=== PATIENT | male | born 1980 | race Caucasian/White ===

== ENCOUNTER 2024-09-15 04:14 | Outpatient (CLI) | payer OTHER, SELFPAY ==
--- OUTSIDE RECORDS SUMMARY | 2024-09-15 05:13 | XMS_ITS | Encounter Summary ---
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 shoes/slippers when out of bed room near nurse's station Intervention: Prevent Skin Injury Recent Flowsheet Documentation Taken 09/16/20242352 by Zaida Read RN Body Position: position changed independently Intervention: Prevent and Manage VTE (Venous Thromboembolism) Risk Recent Flowsheet Documentation Taken 09/16/20242352 by Zaida Read RN VTE Prevention/Management: SCDs on (sequential compression devices) Intervention: Prevent Infection Recent Flowsheet Documentation Taken 09/16/20242352 by Zaida Read RN Infection Prevention: hand hygiene promoted rest/sleep promoted single patient room provided Goal: Optimal Comfort and Wellbeing Outcome: Progressing Goal: Readiness for Transition of Care Outcome: Progressing Problem: Stroke, Ischemic (Includes Transient Ischemic Attack) Goal: Optimal Coping Outcome: Progressing Goal: Effective Bowel Elimination Outcome: Progressing Goal: Optimal Cerebral Tissue Perfusion Outcome: Progressing Intervention: Protect and Optimize Cerebral Perfusion Recent Flowsheet Documentation Taken 09/16/20242352 by Zaida Read RN Sensory Stimulation Regulation: care clustered lighting decreased quiet environment promoted Goal: Optimal Cognitive Function Outcome: Progressing Intervention: Optimize Cognitive Function Recent Flowsheet Documentation Taken 09/16/20242352 by Zaida Read RN Sensory Stimulation Regulation: care clustered lighting decreased quiet environment promoted Reorientation Measures: clock in view Goal: Improved Communication Skills Outcome: Progressing Intervention: Optimize Communication Skills Recent Flowsheet Documentation Taken 09/16/20242352 by Zaida Read RN Communication Enhancement Strategies: call light answered in person Goal: Optimal Functional Ability Outcome: Progressing Intervention: Optimize Functional Ability Recent Flowsheet Documentation Taken 09/16/20242352 by Zaida Read RN Activity Management: activity adjusted per tolerance Goal: Optimal Nutrition Intake Outcome: Progressing Goal: Effective Oxygenation and Ventilation Outcome: Progressing Intervention: Optimize Oxygenation and Ventilation Recent Flowsheet Documentation Taken 09/16/20242352 by Zaida Read RN Head of Bed (HOB) Positioning: HOB at 20-30 degrees Goal: Improved Sensorimotor Function Outcome: Progressing Goal: Safe and Effective Swallow Outcome: Progressing Goal: Effective Urinary Elimination Outcome: Progressing Problem: Comorbidity Management Goal: Blood Glucose Levels Within Targeted Range Outcome: Progressing Intervention: Monitor and Manage Glycemia Recent Flowsheet Documentation Taken 09/16/20242352 by Zaida Read RN Medication Review/Management: medications reviewed Goal: Blood Pressure in Desired Range Outcome: Progressing Intervention: Maintain Blood Pressure Management Recent Flowsheet Documentation Taken 09/16/20242352 by Zaida Read RN Medication Review/Management: medications reviewed * Plan of Care - Esther Morgan RN - 09/16/2024 10:36 PM CDT Goal Outcome Evaluation: BP (!) 131/90 (BP Location: Left arm, Patient Position: Semi-Rangel's, Cuff Size: Adult Regular) Pulse 86 Temp 97.8 ??F (36.6 ??C) (Oral) Resp 16 Wt 114.7 kg (252 lb 12.8 oz) SpO2 96% BMI34.77 kg/m?? Problem: Adult Inpatient Plan of Care Goal: Plan of Care Review Description: The Plan of Care Review/Shift note should be completed every shift. The Outcome Evaluation is a brief statement about your assessment that the patient is improving, declining, or no change. This information will be displayed automatically on your shift note. Outcome: Not Progressing Flowsheets (Taken 09/16/20242234) Outcome Evaluation: Pt A&O, SBA for mobility, on BG check covered with insuline, denied pain, on continuing IV fluids, on tele monitor SR, ate 100% of his meal, voided adequately. Goal: Patient-Specific Goal (Individualized) Description: You can add care plan individualizations to a care plan. Examples of Individualizationmight be: Parent requests to be called daily at 9am for status, I have a hard time hearing out of my right ear, or Do not touch me to wake me up as it startles me. Outcome: Not Progressing Goal: Absence of Hospital-Acquired Illness or Injury Outcome: Not Progressing Intervention: Identify and Manage Fall Risk Recent Flowsheet Documentation Taken 09/16/20242199 by Esther Morgan RN Safety Promotion/Fall Prevention: safety round/check completed Intervention: Prevent Skin Injury Recent Flowsheet Documentation Taken 09/16/20242199 by Esther Morgan RN Body Position: position changed independently Intervention: Prevent and Manage VTE (Venous Thromboembolism) Risk Recent Flowsheet Documentation Taken 09/16/20242199 by Esther Morgan RN VTE Prevention/Management: SCDs on (sequential compression devices) Intervention: Prevent Infection Recent Flowsheet Documentation Taken 09/16/20242199 by Esther Morgan RN Infection Prevention: rest/sleep promoted hand hygiene promoted single patient room provided Goal: Optimal Comfort and Wellbeing Outcome: Not Progressing Goal: Readiness for Transition of Care Outcome: Not Progressing Problem: Stroke, Ischemic (Includes Transient Ischemic Attack) Goal: Optimal Coping Outcome: Not Progressing Goal: Effective Bowel Elimination Outcome: Not Progressing Goal: Optimal Cerebral Tissue Perfusion Outcome: Not Progressing Intervention: Protect and Optimize Cerebral Perfusion Recent Flowsheet Documentation Taken 09/16/20242199 by Esther Morgan RN Sensory Stimulation Regulation: care clustered lighting decreased Goal: Optimal Cognitive Function Outcome: Not Progressing Intervention: Optimize Cognitive Function Recent Flowsheet Documentation Taken 09/16/20242199 by Esther Morgan RN Sensory Stimulation Regulation: care clustered lighting decreased Reorientation Measures: clock in view Goal: Improved Communication Skills Outcome: Not Progressing Intervention: Optimize Communication Skills Recent Flowsheet Documentation Taken 09/16/20242199 by Esther Morgan RN Communication Enhancement Strategies: call light answered in person Goal: Optimal Functional Ability Outcome: Not Progressing Intervention: Optimize Functional Ability Recent Flowsheet Documentation Taken 09/16/20242199 by Etsher Morgan RN Activity Management: ambulated to bathroom back to bed Goal: Optimal Nutrition Intake Outcome: Not Progressing Goal: Effective Oxygenation and Ventilation Outcome: Not Progressing Intervention: Optimize Oxygenation and Ventilation Recent Flowsheet Documentation Taken 09/16/20242199 by Esther Morgan RN Head of Bed (HOB) Positioning: HOB at 20-30 degrees Goal: Improved Sensorimotor Function Outcome: Not Progressing Intervention: Optimize Range of Motion, Motor Control and Function Recent Flowsheet Documentation Taken 09/16/20242199 by Esther Morgan RN Positioning/Transfer Devices: pillows in use Goal: Safe and Effective Swallow Outcome: Not Progressing Goal: Effective Urinary Elimination Outcome: Not Progressing Problem: Comorbidity Management Goal: Blood Glucose Levels Within Targeted Range Outcome: Not Progressing Intervention: Monitor and Manage Glycemia Recent Flowsheet Documentation Taken 09/16/20242199 by Esther Morgan RN Medication Review/Management: medications reviewed Goal: Blood Pressure in Desired Range Outcome: Not Progressing Intervention: Maintain Blood Pressure Management Recent Flowsheet Documentation Taken 09/16/20242199 by Esther Morgan RN Medication Review/Management: medications reviewed Outcome Evaluation: Pt A&O, SBA for mobility, on BG check covered with insuline, denied pain, on continuing IV fluids, on tele monitor SR, ate 100% of his meal, voided adequately. * Plan of Care - Miah Gordon RN - 09/16/2024 7:05 PM CDT A&Ox4. Int forgetfulness. Mod/carb diet. RA. SB. IV fluids running @125ml/hr. BG ac/hs. Carb count. Tele-SR. Neuros stable X R pupil reaction brisk. Neuro following. Plan to discharge when medically ready. Goal Outcome Evaluation: Plan of Care Reviewed With: patient Overall Patient Progress: improvingOverall Patient Progress: improving Outcome Evaluation: Neauros stable/ R pupil reaction brisk. Problem: Adult Inpatient Plan of Care Goal: Plan of Care Review Description: The Plan of Care Review/Shift note should be completed every shift. The Outcome Evaluation is a brief statement about your assessment that the patient is improving, declining, or no change. This information will be displayed automatically on your shift note. Outcome: Progressing Flowsheets (Taken 09/16/2024 1904) Outcome Evaluation: Neauros stable/ R pupil reaction brisk. Plan of Care Reviewed With: patient Overall Patient Progress: improving Goal: Patient-Specific Goal (Individualized) Description: You can add care plan individualizations to a care plan. Examples of Individualizationmight be: Parent requests to be called daily at 9am for status, I have a hard time hearing out of my right ear, or Do not touch me to wake me up as it startles me. Outcome: Progressing Goal: Absence of Hospital-Acquired Illness or Injury Outcome: Progressing Intervention: Identify and Manage Fall Risk Recent Flowsheet Documentation Taken 09/16/2024 1147 by Miah Gordon RN Safety Promotion/Fall Prevention: safety round/check completed Intervention: Prevent Skin Injury Recent Flowsheet Documentation Taken 09/16/2024 1147 by Miah Gordon RN Body Position: position changed independently Taken 09/16/2024 0830 by Miah Gordon RN Body Position: position changed independently Intervention: Prevent and Manage VTE (Venous Thromboembolism) Risk Recent Flowsheet Documentation Taken 09/16/2024 1147 by Miah Gordno RN VTE Prevention/Management: SCDs on (sequential compression devices) Intervention: Prevent Infection Recent Flowsheet Documentation Taken 09/16/2024 1147 by Miah Gordon RN Infection Prevention: rest/sleep promoted hand hygiene promoted single patient room provided Goal: Optimal Comfort and Wellbeing Outcome: Progressing Goal: Readiness for Transition of Care Outcome: Progressing * Plan of Care - Zaida Castillo, PT - 09/16/2024 8:54 AM CDT Physical Therapy: Orders received. Chart reviewed and discussed with care team.? Physical Therapy not indicated due to pt mobilizing independently, no IP PT needs.? Defer discharge recommendations toOT and medical team.? Will complete orders. * Plan of Care - Zaida Read RN - 09/16/2024 4:39 AM CDT VS stable. Neuro's stable with only deficit of some forgetfulness. No complaints of pain. Blood sugar of 274. Tele is sinus rhythm. Goal Outcome Evaluation: Plan of Care Reviewed With: patient Overall Patient Progress: no changeOverall Patient Progress: no change Outcome Evaluation: Neuro's stable. Problem: Adult Inpatient Plan of Care Goal: Plan of Care Review Description: The Plan of Care Review/Shift note should be completed every shift. The Outcome Evaluation is a brief statement about your assessment that the patient is improving, declining, or no change. This information will be displayed automatically on your shift note. Outcome: Progressing Flowsheets (Taken 09/16/2024 0438) Outcome Evaluation: Neuro's stable. Plan of Care Reviewed With: patient Overall Patient Progress: no change Goal: Patient-Specific Goal (Individualized) Description: You can add care plan individualizations to a care plan. Examples of Individualizationmight be: Parent requests to be called daily at 9am for status, I have a hard time hearing out of my right ear, or Do not touch me to wake me up as it startles me. Outcome: Progressing Goal: Absence of Hospital-Acquired Illness or Injury Outcome: Progressing Intervention: Identify and Manage Fall Risk Recent Flowsheet Documentation Taken 09/16/2024 by Zaida Read RN Safety Promotion/Fall Prevention: clutter free environment maintained lighting adjusted nonskid shoes/slippers when out of bed Intervention: Prevent Skin Injury Recent Flowsheet Documentation Taken 09/16/2024 0000 by Zaida Read RN Body Position: position changed independently Intervention: Prevent and Manage VTE (Venous Thromboembolism) Risk Recent Flowsheet Documentation Taken 09/16/2024 0000 by Zaida Read RN VTE Prevention/Management: SCDs on (sequential compression devices) Intervention: Prevent Infection Recent Flowsheet Documentation Taken 09/16/2024 0000 by Zaida Read RN Infection Prevention: rest/sleep promoted hand hygiene promoted single patient room provided Goal: Optimal Comfort and Wellbeing Outcome: Progressing Goal: Readiness for Transition of Care Outcome: Progressing Problem: Stroke, Ischemic (Includes Transient Ischemic Attack) Goal: Optimal Coping Outcome: Progressing Goal: Effective Bowel Elimination Outcome: Progressing Goal: Optimal Cerebral Tissue Perfusion Outcome: Progressing Intervention: Protect and Optimize Cerebral Perfusion Recent Flowsheet Documentation Taken 09/16/2024 0000 by Zaida Read RN Sensory Stimulation Regulation: care clustered lighting decreased Goal: Optimal Cognitive Function Outcome: Progressing Intervention: Optimize Cognitive Function Recent Flowsheet Documentation Taken 09/16/2024 0000 by Zaida Read RN Sensory Stimulation Regulation: care clustered lighting decreased Reorientation Measures: clock in view Goal: Improved Communication Skills Outcome: Progressing Intervention: Optimize Communication Skills Recent Flowsheet Documentation Taken 09/16/2024 0000 by Zaida Read RN Communication Enhancement Strategies: call light answered in person Goal: Optimal Functional Ability Outcome: Progressing Intervention: Optimize Functional Ability Recent Flowsheet Documentation Taken 09/16/2024 0000 by Zaida Read RN Activity Management: activity adjusted per tolerance Goal: Optimal Nutrition Intake Outcome: Progressing Goal: Effective Oxygenation and Ventilation Outcome: Progressing Intervention: Optimize Oxygenation and Ventilation Recent Flowsheet Documentation Taken 09/16/2024 0000 by Zaida Read RN Head of Bed (HOB) Positioning: HOB at 30 degrees Goal: Improved Sensorimotor Function Outcome: Progressing Goal: Safe and Effective Swallow Outcome: Progressing Goal: Effective Urinary Elimination Outcome: Progressing Problem: Comorbidity Management Goal: Blood Glucose Levels Within Targeted Range Outcome: Progressing Intervention: Monitor and Manage Glycemia Recent Flowsheet Documentation Taken 09/16/2024 0000 by Zaida Read RN Medication Review/Management: medications reviewed Goal: Blood Pressure in Desired Range Outcome: Progressing Intervention: Maintain Blood Pressure Management Recent Flowsheet Documentation Taken 09/16/2024 by Zaida Read RN Medication Review/Management: medications reviewed * Plan of Care - Charlene Betancourt RN - 09/15/2024 9:36 PM CDT A&OX4. LS clear. Vitals see flowsheet. Afebrile. Permissive Hypertension per MD. Neuro intact except for forgetfulness : Patient ordered supper, but totally forgot he did order supper. No other deficits noted. NS infusing at 125 ml/hr. Tele NSR. BG 265 and 286 at HS. Up with SBA to bathroom. Denied pain at the time of assessment. Problem: Adult Inpatient Plan of Care Goal: Plan of Care Review Description: The Plan of Care Review/Shift note should be completed every shift. The Outcome Evaluation is a brief statement about your assessment that the patient is improving, declining, or no change. This information will be displayed automatically on your shift note. Outcome: Progressing Flowsheets (Taken 09/15/20242133) Outcome Evaluation: Neuro intact except for some forgetfulness. No deficts noted. Plan of Care Reviewed With: patient Overall Patient Progress: improving Goal: Patient-Specific Goal (Individualized) Description: You can add care plan individualizations to a care plan. Examples of Individualizationmight be: Parent requests to be called daily at 9am for status, I have a hard time hearing out of my right ear, or Do not touch me to wake me up as it startles me. Outcome: Progressing Goal: Absence of Hospital-Acquired Illness or Injury Outcome: Progressing Intervention: Identify and Manage Fall Risk Recent Flowsheet Documentation Taken 09/15/20241652 by Charlene Betancourt RN Safety Promotion/Fall Prevention: activity supervised Intervention: Prevent Skin Injury Recent Flowsheet Documentation Taken 09/15/20241652 by Charlene Betancourt RN Body Position: position changed independently Intervention: Prevent and Manage VTE (Venous Thromboembolism) Risk Recent Flowsheet Documentation Taken 09/15/20241652 by Charlene Betancourt RN VTE Prevention/Management: SCDs on (sequential compression devices) Intervention: Prevent Infection Recent Flowsheet Documentation Taken 09/15/20241652 by Charlene Betancourt RN Infection Prevention: single patient room provided hand hygiene promoted Goal: Optimal Comfort and Wellbeing Outcome: Progressing Goal: Readiness for Transition of Care Outcome: Progressing Problem: Stroke, Ischemic (Includes Transient Ischemic Attack) Goal: Optimal Coping Outcome: Progressing Goal: Effective Bowel Elimination Outcome: Progressing Goal: Optimal Cerebral Tissue Perfusion Outcome: Progressing Goal: Optimal Cognitive Function Outcome: Progressing Goal: Improved Communication Skills Outcome: Progressing Goal: Optimal Functional Ability Outcome: Progressing Intervention: Optimize Functional Ability Recent Flowsheet Documentation Taken 09/15/20241652 by Charlene Betancourt RN Activity Management: activity adjusted per tolerance Goal: Optimal Nutrition Intake Outcome: Progressing Goal: Effective Oxygenation and Ventilation Outcome: Progressing Intervention: Optimize Oxygenation and Ventilation Recent Flowsheet Documentation Taken 09/15/20241652 by Charlene Betancourt RN Head of Bed (HOB) Positioning: HOB at 30 degrees Goal: Improved Sensorimotor Function Outcome: Progressing Goal: Safe and Effective Swallow Outcome: Progressing Goal: Effective Urinary Elimination Outcome: Progressing Problem: Comorbidity Management Goal: Blood Glucose Levels Within Targeted Range Outcome: Progressing Intervention: Monitor and Manage Glycemia Recent Flowsheet Documentation Taken 09/15/20241652 by Charlene Betancourt RN Medication Review/Management: medications reviewed Goal: Blood Pressure in Desired Range Outcome: Progressing Intervention: Maintain Blood Pressure Management Recent Flowsheet Documentation Taken 09/15/20241652 by Charlene Betancourt RN Medication Review/Management: medications reviewed Goal Outcome Evaluation: Plan of Care Reviewed With: patient Overall Patient Progress: improvingOverall Patient Progress: improving Outcome Evaluation: Neuro intact except for some forgetfulness. No deficts noted. * Pharmacy-Admission Medication History - Parker Schmitz RPH - 09/15/2024 10:25 AM CDT Pharmacist Admission Medication History Admission medication history is complete. The information provided in this note is only as accurateas the sources available at the time of the update. Information Source(s): Patient via in-person Pertinent Information: Patient states he is not taking any prescription medications at the moment. No medications have been filled in surescripts for the past 12 months. Changes made to [employer] medication list: Added: None Deleted: 81mg Aspirin, Atorvastatin, bupropion, Invokana, Bydureon, losartan Changed: None Allergies reviewed with patient and updates made in EHR: yes Medication History Completed By: Parker Schmitz RPH 09/15/2024 10:25 AM No outpatient medications have been marked as taking for the 09/15/24 encounter (Hospital Encounter). documented in this encounter Plan of Treatment Scheduled Orders Name Type Priority Associated Diagnoses Orde r Schedule Echocardiogram PHYLLIS Echocardiography Routine Acute CVA (cerebrovascular accident) (H) Expected: 09/22/2024 (Approximate), Expires: 09/15/2025 Scheduled Referrals Name Type Priority Associated Diagnoses Orde r Schedule Hospital to Primary Care - Establish PCP Referral Referral Priority: 1-2 Weeks Acute CVA (cerebrovascular accident) (H) Type 2 diabetes mellitus without complication, without long-term current use of insulin (H) Benign essential hypertension Stage 3a chronic kidney disease (H) ANG (obstructive sleep apnea) Morbid obesity due to excess calories (H) Expected: 09/17/2024 (Approximate), Expires: 10/17/2024 Occupational Therapy [employer] Referral Referral Routine Acute CVA (cerebrovascular accident) (H) Type 2 diabetes mellitus without complication, without long-term current use of insulin (H) Benign essential hypertension Expected: 09/17/2024 (Approximate), Expires: 09/17/2025 Sleep Study Referral Referral Routine: Ne xt available opening Type 2 diabetes mellitus without complication, without long-term current use of insulin (H) Benign essential hypertension ANG (obstructive sleep apnea) Expected: 09/17/2024 (Approximate), Expires: 09/17/2025 documented as of this encounter Procedures Procedure Name Priority Date/Time Associated Diagnosis Comments GLUCOSE BY METER Routine 09/17/2024 12:0 1 PM CDT GLUCOSE BY METER Routine 09/17/2024 8:09 AM CDT BASIC METABOLIC PANEL Routine 09/17/2024 7:38 AM CDT CBC WITH PLATELETS Routine 09/17/2024 7: 38 AM CDT GLUCOSE BY METER Routine 09/17/2024 2:10 AM CDT GLUCOSE BY METER Routine 09/16/2024 9:17 PM CDT GLUCOSE BY METER Routine 09/16/2024 5:18 PM CDT GLUCOSE BY METER Routine 09/16/2024 11:4 3 AM CDT GLUCOSE BY METER Routine 09/16/2024 7:39 AM CDT BASIC METABOLIC PANEL Routine 09/16/2024 6:46 AM CDT CBC WITH PLATELETS Routine 09/16/2024 6: 46 AM CDT GLUCOSE BY METER Routine 09/16/2024 2:[address] CHEST/ABDOMEN/PELVIS W CONTRAST Routine 09/15/2024 10:05 PM CDT GLUCOSE BY METER Routine 09/15/2024 9:13 PM CDT PROTEIN S ANTIGEN FREE Routine 5:08 PM CDT PROTEIN C CHROMOGENIC Routine 09/15/2024 5:08 PM CDT LUPUS ANTICOAGULANT PANEL Routine 09/15/2024 5:08 PM CDT ANTITHROMBIN III Routine 09/15/2024 5:08 PM CDT GLUCOSE BY METER Routine 09/15/2024 4:46 PM CDT CTA HEAD NECK W CONTRAST STAT 09/15/2024 2:15 PM CDT US LOWER EXTREMITY VENOUS DUPLEX BILATERAL Routine 09/15/2024 2:04 PM CDT ECHO COMPLETE BUBBLE STAT 09/15/2024 1:26 PM CDT GLUCOSE BY METER STAT 09/15/2024 12:1 7 PM CDT GLUCOSE BY METER STAT 09/15/2024 10:2 4 AM CDT MR BRAIN W/O & W CONTRAST STAT 09/15/2024 10:21 AM CDT MRA NECK (CAROTIDS) W/O & W CONTRAST STAT 09/15/2024 10:21 AM CDT MRA BRAIN ([place]) W/O CONTRAST STAT 09/15/2024 10:21 AM CDT GLUCOSE BY METER STAT 09/15/2024 8:13 AM CDT URINE DRUG SCREEN STAT 09/15/2024 8:0 2 AM CDT ROUTINE UA WITH MICROSCOPIC REFLEX TO CULTURE STAT 09/15/2024 8:02 AM CDT URINE DRUG SCREEN PANEL STAT 09/15/2024 8:02 AM CDT BETA 2 GLYCOPROTEIN 1 ANTIBODY IGM Add-On 09/15/2024 7:23 AM CDT BETA 2 GLYCOPROTEIN 1 ANTIBODY IGG Add-On 09/15/2024 7:23 AM CDT TROPONIN T, HIGH SENSITIVITY STAT 09/15/2024 7:[address] HEAD W/O CONTRAST STAT 09/15/2024 6:34 AM CDT ISTAT GASES LACTATE VENOUS POCT STAT 09/15/2024 5:35 AM CDT LIPID REFLEX TO DIRECT LDL PANEL Add-On 09/15/2024 5:35 AM CDT KETONE BETA-HYDROXYBUTYRATE QUANTITATIVE, RAPID STAT 09/15/2024 5:35 AM CDT CBC WITH PLATELETS AND DIFFERENTIAL STAT 09/15/2024 5:33 AM CDT CARDIOLIPIN KATI IGG AND IGM Add-On 09/15/2024 5:33 AM CDT TROPONIN T, HIGH SENSITIVITY STAT 09/15/2024 5:33 AM CDT CBC WITH PLATELETS & DIFFERENTIAL STAT 09/15/2024 5:33 AM CDT HEPATIC FUNCTION PANEL STAT 5:33 AM CDT HEMOGLOBIN A1C Add-On 09/15/2024 5:33 AM CDT ETHANOL LEVEL BLOOD STAT 09/15/2024 5 :33 AM CDT BASIC METABOLIC PANEL STAT 09/15/2024 5:33 AM CDT EKG 12-LEAD, TRACING ONLY STAT 09/15/2024 5:32 AM CDT GLUCOSE BY METER STAT 09/15/2024 5:17 AM CDT documented in this encounter Results * (ABNORMAL) Glucose by meter (09/17/2024 12:01 PM CDT) GLUCOSE BY METER POCT 250(H) 70 - 99 mg/dL 09/17/2024 12:08 PM CDT LABORATORY POC Blood, Capillary BLOOD SPECIMEN / Unknown 09/17/2024 12:01 PM CDT 09/17/2024 12:08 PM CDT us Trish Gandara DO LAB - BEAKER POCT Final R esult Performing Organization Address City/[facility]/ZIP Co de Phone Number LABORATORY [facility] [address] Lab (1st floor, no room number) [place] [phone] [place] [address] * (ABNORMAL) Glucose by meter (09/17/2024 8:09 AM CDT) GLUCOSE BY METER POCT 225(H) 70 - 99 mg/dL 09/17/2024 8:19 AM CDT LABORATORY POC Blood, Capillary BLOOD SPECIMEN / Unknown 09/17/2024 8:09 AM CDT 09/17/2024 8:19 AM CDT us Trish Gandara DO LAB - BEAKER POCT Final R esult LABORATORY [facility] [address] Lab (1st floor, no room number) [place] [address] * (ABNORMAL) Basic metabolic panel (09/17/2024 7:38 AM CDT) Sodium 138 135 - 145 mmol/L 09/17/2024 8:25 AM [facility] Potassium 3.8 3.4 - 5.3 mmol/L 09/17/2024 8:25 AM [facility] Chloride 109(H) 98 - 107 mmol/L 09/17/2024 8:25 AM [facility] Carbon Dioxide (CO2) 22 22 - 29 mmol/L 09/17/2024 8:25 AM T LABORATORY Anion Gap 7 7 - 15 mmol/L 09/17/2024 8:25 AM [facility] Urea Nitrogen 10.7 6.0 - 20.0 mg/dL 09/17/2024 8:25 AM [facility] Creatinine 0.72 0.51 - 1.17 mg/dL 09/17/2024 8:25 AM [facility] Comment: Male and Female 0-2 Months 0.31-0.88 mg/dL 2-12 Months 0.16-0.39 mg/dL 1-2 Years 0.18-0.35 mg/dL 3-4 Years 0.26-0.42 mg/dL 5-6 Years 0.29-0.47 mg/dL 7-8 Years 0.34-0.53 mg/dL 9-10 Years 0.33-0.64 mg/dL 11-12 Years 0.44-0.68 mg/dL 13-14 Years 0.46-0.77 mg/dL Female 15 Years and older 0.51-0.95 mg/dL Male 15 Years and older 0.67-1.17 mg/dL GFR Estimate >90 >60 mL/min/1. 73m2 09/17/2024 8:25 AM [facility] Comment: The generation of the estimated GFR is currently based on binary male or female sex. If the electronic health record information indicates another gender identity or if Legal Sex is recorded as Unknown, GFR estimates are not automatically calculated, and application of GFR equations or a direct GFR measurement should be considered according to the individual's appropriate clinical context. eGFR calculated using 2020 CKD-EPI equation. Calcium 7.6(L) 8.8 - 10.4 mg/dL 09/17/2024 8:25 AM [facility] Glucose 218(H) 70 - 99 mg/dL 09/17/2024 8:25 AM CDT [facility] LABORATORY Blood STRUCTURE OF RIGHT HAND / Unknown Venipuncture / Unknown 09/17/2024 7:38 AM CDT 09/17/2024 8:04 AM CDT Narrative [facility] LABORATORY - 09/17/2024 8:25 AM CDT The generation of reference intervals for this test is currently based on binary male or female sex. If the electronic health record information indicates another gender identity or if Legal Sex is recorded as Unknown, both male and female reference intervals are provided where applicable, and should be considered according to the individual's appropriate clinical context. us Trish Gandara DO LAB - BLOOD ORDERABLES Fi nal Result RH LABORATORY [facility] [address] [facility] ([facility]st floor, no room number) [place] [address], [facility] * (ABNORMAL) CBC with platelets (09/17/2024 7:38 AM CDT) WBC Count 11.7(H) 4.0 - 11.0 10e3/uL 09/17/2024 8:08 AM CDT [facility] LABORATORY RBC Count 4.03 3.80 - 5.90 10e6/uL 09/17/2024 8:08 AM CDT [facility] LABORATORY Comment:Reference Range: Fe male 3.80-5.20 10e6/uL Male 4.40-5.90 10e6u/L Hemoglobin 12.5 11.7 - 17.7 g/dL 09/17/2024 8:08 AM CDT [facility] LABORATORY Comment:Reference Range: Fe male 11.7-15.7 g/dL Male 13.3-17.7 g/dL Hematocrit 36.6 35.0 - 53.0 % 09/17/2024 8:08 AM CDT [facility] LABORATORY Comment:Reference Range: Fem iveth 35.0-47.0 % Male 40.0-54.0 % MCV 91 78 - 100 fL 09/17/2024 8:08 AM CDT RH LABORATORY MCH 31.0 26.5 - 33.0 pg 09/17/2024 8:08 AM CDT [facility] LABORATORY MCHC 34.2 31.5 - 36.5 g/dL 09/17/2024 8:08 AM CDT RH LABORATORY RDW 12.6 10.0 - 15.0 % 09/17/2024 8:08 AM CDT RH LABORATORY Platelet Count 238 150 - 450 10e3/uL 09/17/2024 8:08 AM CDT RH LABORATORY Blood STRUCTURE OF RIGHT HAND / Unknown Venipuncture / Unknown 09/17/2024 7:38 AM CDT 09/17/2024 8:04 AM CDT Narrative RH LABORATORY - 09/17/2024 8:08 AM CDT The generation of reference intervals for this test is currently based on binary male or female sex. If the electronic health record information indicates another gender identity or if Legal Sex is recorded as Unknown, both male and female reference intervals are provided where applicable, and should be considered according to the individual's appropriate clinical context. us Trish Gandara DO LAB - BLOOD ORDERABLES Fi nal Result Performing Organization Address City/[facility]/ZIP Co de Phone Number [facility] Lab [address] Lab (1st floor, no room number) [place] [phone] [place] [address] * (ABNORMAL) Glucose by meter (09/17/2024 2:10 AM CDT) GLUCOSE BY METER POCT 239(H) 70 - 99 mg/dL 09/17/2024 2:18 AM CDT RH LABORATORY POC Blood, Capillary BLOOD SPECIMEN / Unknown 09/17/2024 2:10 AM CDT 09/17/2024 2:18 AM CDT us Trish Gandara DO LAB - BEAKER POCT Final R esult [facility] [address] Lab (1st floor, no room number) [place] [address], [facility] * (ABNORMAL) Glucose by meter (09/16/2024 9:17 PM CDT) GLUCOSE BY METER POCT 257(H) 70 - 99 mg/dL 09/16/2024 9:24 PM CDT LABORATORY POC Comment:/TETO Notified Blood, Capillary BLOOD SPECIMEN / Unknown 09/16/2024 9:17 PM CDT 09/16/2024 9:24 PM CDT us Trish Gandara DO LAB - BEAKER POCT Final R esult LABORATORY [facility] Lab [address] Lab (1st floor, no room number) [place] [address], [facility] * (ABNORMAL) Glucose by meter (09/16/2024 5:18 PM CDT) GLUCOSE BY METER POCT 260(H) 70 - 99 mg/dL 09/16/2024 5:25 PM CDT LABORATORY POC Comment:[place] Notified Blood, Capillary BLOOD SPECIMEN / Unknown 09/16/2024 5:18 PM CDT 09/16/2024 5:25 PM CDT us Trish Gandara DO LAB - BEAKER POCT Final R esult Performing Organization Address City/[facility]/ZIP Co de Phone Number LABORATORY [facility] Lab [address] Lab (1st floor, no room number) [place] [address], [facility] * (ABNORMAL) Glucose by meter (09/16/2024 11:43 AM CDT) GLUCOSE BY METER POCT 301(H) 70 - 99 mg/dL 09/16/2024 11:50 AM CDT LABORATORY POC Comment:[place] Notified Blood, Capillary BLOOD SPECIMEN / Unknown 09/16/2024 11:43 AM CDT 09/16/2024 11:50 AM CDT us Trish Gandara DO LAB - BEAKER POCT Final R esult LABORATORY [facility] Lab [address] Lab (1st floor, no room number) [place] [phone] * (ABNORMAL) Glucose by meter (09/16/2024 7:39 AM CDT) GLUCOSE BY METER POCT 248(H) 70 - 99 mg/dL 09/16/2024 7:45 AM CDT RH LABORATORY POC Comment:Dr/RN Notified Blood, Capillary BLOOD SPECIMEN / Unknown 09/16/2024 7:39 AM CDT 09/16/2024 7:45 AM CDT us Trish Gandara DO LAB - BEAKER POCT Final R esult RH LABORATORY POC [facility] Lab [address] [facility] Lab (1st floor, no room number) [place] [phone] [place] [address] * (ABNORMAL) CBC with platelets (09/16/2024 6:46 AM CDT) WBC Count 12.4(H) 4.0 - 11.0 10e3/uL 09/16/2024 6:57 AM CDT RH LABORATORY RBC Count 4.33 3.80 - 5.90 10e6/uL 09/16/2024 6:57 AM CDT RH LABORATORY Comment:Reference Range: Fem iveth 3.80-5.20 10e6/uL Male 4.40-5.90 10e6u/L Hemoglobin 13.6 11.7 - 17.7 g/dL 09/16/2024 6:57 AM CDT RH LABORATORY Comment:Reference Range: Fem iveth 11.7-15.7 g/dL Male 13.3-17.7 g/dL Hematocrit 38.7 35.0 - 53.0 % 09/16/2024 6:57 AM CDT RH LABORATORY Comment:Reference Range: Fem iveth 35.0-47.0 % Male 40.0-54.0 % MCV 89 78 - 100 fL 09/16/2024 6:57 AM CDT RH LABORATORY MCH 31.4 26.5 - 33.0 pg 09/16/2024 6:57 AM CDT RH LABORATORY MCHC 35.1 31.5 - 36.5 g/dL 09/16/2024 6:57 AM CDT RH LABORATORY RDW 12.7 10.0 - 15.0 % 09/16/2024 6:57 AM CDT RH LABORATORY Platelet Count 262 150 - 450 10e3/uL 09/16/2024 6:57 AM CDT RH LABORATORY Blood STRUCTURE OF LEFT UPPER LIMB / Unknown Venipuncture / Unknown 09/16/2024 6:46 AM CDT 09/16/2024 6:54 AM CDT Narrative RH LABORATORY - 09/16/2024 6:57 AM CDT The generation of reference intervals for this test is currently based on binary male or female sex. If the electronic health record information indicates another gender identity or if Legal Sex is recorded as Unknown, both male and female reference intervals are provided where applicable, and should be considered according to the individual's appropriate clinical context. Edvin Guillen APRN AGRICULTURAL PILOT LAB - BLOOD ORDERABLE S Final Result RH LABORATORY [facility] Lab [address] [facility] [facility] Lab (1st floor, no room number) [place] [address], [facility] * (ABNORMAL) Basic metabolic panel (09/16/2024 6:46 AM CDT) Sodium 135 135 - 145 mmol/L 09/16/2024 7:14 AM CDT RH LABORATORY Potassium 4.1 3.4 - 5.3 mmol/L 09/16/2024 7:14 AM CDT RH LABORATORY Chloride 105 98 - 107 mmol/L 09/16/2024 7:14 AM CDT RH LABORATORY Carbon Dioxide (CO2) 24 22 - 29 mmol/L 09/16/2024 7:14 AM CDT RH LABORATORY Anion Gap 6(L) 7 - 15 mmol/L 09/16/2024 7:14 AM CDT RH LABORATORY Urea Nitrogen 12.3 6.0 - 20.0 mg/dL 09/16/2024 7:14 AM CDT RH LABORATORY Creatinine 0.74 0.51 - 1.17 mg/dL 09/16/2024 7:14 AM CDT RH LABORATORY Comment: Male and Female 0-2 Months 0.31-0.88 mg/dL 2-12 Months 0.16-0.39 mg/dL 1-2 Years 0.18-0.35 mg/dL 3-4 Years 0.26-0.42 mg/dL 5-6 Years 0.29-0.47 mg/dL 7-8 Years 0.34-0.53 mg/dL 9-10 Years 0.33-0.64 mg/dL 11-12 Years 0.44-0.68 mg/dL 13-14 Years 0.46-0.77 mg/dL Female 15 Years and older 0.51-0.95 mg/dL Male 15 Years and older 0.67-1.17 mg/dL GFR Estimate >90 >60 mL/min/1. 73m2 09/16/2024 7:14 AM CDT LABORATORY Comment: The generation of the estimated GFR is currently based on binary male or female sex. If the electronic health record information indicates another gender identity or if Legal Sex is recorded as Unknown, GFR estimates are not automatically calculated, and application of GFR equations or a direct GFR measurement should be considered according to the individual's appropriate clinical context. eGFR calculated using 2020 CKD-EPI equation. Calcium 8.2(L) 8.8 - 10.4 mg/dL 09/16/2024 7:14 AM CDT LABORATORY Glucose 293(H) 70 - 99 mg/dL 09/16/2024 7:14 AM CDT LABORATORY Blood STRUCTURE OF LEFT UPPER LIMB / Unknown Venipuncture / Unknown 09/16/2024 6:46 AM CDT 09/16/2024 6:54 AM CDT [facility] LABORATORY - 09/16/2024 7:14 AM CDT The generation of reference intervals for this test is currently based on binary male or female sex. If the electronic health record information indicates another gender identity or if Legal Sex is recorded as Unknown, both male and female reference intervals are provided where applicable, and should be considered according to the individual's appropriate clinical context. us Edvin Guillen APRN AGRICULTURAL PILOT LAB - BLOOD ORDERABLE S Final Result LABORATORY [facility] Lab [address] Lab (1st floor, no room number) [place] [address], [facility] * (ABNORMAL) Glucose by meter (09/16/2024 2:21 AM CDT) [facility] GLUCOSE BY METER POCT 274(H) 70 - 99 mg/dL 09/16/2024 2:28 AM CDT LABORATORY POC Blood, Capillary BLOOD SPECIMEN / Unknown 09/16/2024 2:21 AM CDT 09/16/2024 2:28 AM CDT us Trish Gandara DO LAB - BEAKER POCT Final R esult LABORATORY [facility] Lab [address] [address] [facility] Lab (1st floor, no room number) [place] [address] * CT Chest/Abdomen/Pelvis w Contrast (09/15/2024 10:05 PM CDT) Anatomical Region Laterality Modality Abdomen/Pelvis, Chest, SUBRA D CT BODY, UMP CT CHEST, UMP CT ABDOMEN PELVIS, RAD CT Computed Tomography 09/15/2024 10:0 5 PM CDT Impressions 09/16/2024 1:27 AM CDT IMPRESSION: 1. Indeterminate 1.8 cm hypoattenuating lesion in the hepatic dome, favoring a benign hemangioma. Consider definitive confirmation with liver protocol MRI. 2. Mildly prominent bilateral hilar lymphatic tissues without definite lymphadenopathy in the chest, indeterminate, either reactive or physiologic. 3. No primary malignancy identified in the chest, abdomen and pelvis. 4. 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 Narrative 09/16/2024 1:27 AM CDT EXAM: CT CHEST/ABDOMEN/PELVIS W CONTRAST LOCATION: [facility] DATE: 09/15/2024 INDICATION: multifocal infarcts, assess for malignancy COMPARISON: None. TECHNIQUE: CT scan of the chest, abdomen, and pelvis was performed following injection of IV contrast. Multiplanar reformats were obtained. Dose reduction techniques were used. CONTRAST: 100 mL Isovue 370 FINDINGS: LUNGS AND PLEURA: Scattered atelectasis in the lung bases. No pulmonary masses, confluent consolidation, pleural effusion or pneumothorax. MEDIASTINUM/AXILLAE: Mildly prominent bilateral hilar lymphatic tissues. Heart size is normal without pericardial effusion. CORONARY ARTERY CALCIFICATION: Mild. HEPATOBILIARY: Liver is normal in size. An indeterminate hypoattenuating lesion is seen in segment 4A of the hepatic dome with peripheral nodular enhancement measuring 1.8 cm. Gallbladder is normal. PANCREAS: Normal. 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 Normal left adrenal gland. KIDNEYS/BLADDER: Left kidney is surgically absent with compensatory hypertrophy of the right kidney. No right hydroureteronephrosis. Bladder is normal. BOWEL: Normal including the appendix. No free fluid or free air. LYMPH NODES: Normal. VASCULATURE: Minimal aortoiliac atherosclerotic calcification. No abdominal aortic aneurysm. PELVIC ORGANS: Normal. MUSCULOSKELETAL: Focal anterior osteophyte formation in the midthoracic spine. No suspicious osseous lesions or acute fractures. Procedure Note Parker Harris MD - 09/16/2024 EXAM: CT CHEST/ABDOMEN/PELVIS W CONTRAST LOCATION: [facility] DATE: 09/15/2024 INDICATION: multifocal infarcts, assess for malignancy COMPARISON: None. TECHNIQUE: CT scan of the chest, abdomen, and pelvis was performedfollowing injection of IV contrast. Multiplanar reformats were obtained.Dose reduction techniques were used. CONTRAST: 100 mL Isovue 370 FINDINGS: LUNGS AND PLEURA: Scattered atelectasis in the lung bases. No pulmonarymasses, confluent consolidation, pleural effusion or pneumothorax. MEDIASTINUM/AXILLAE: Mildly prominent bilateral hilar lymphatic tissues.Heart size is normal without pericardial effusion. CORONARY ARTERY CALCIFICATION: Mild. HEPATOBILIARY: Liver is normal in size. An indeterminate hypoattenuatinglesion is seen in segment 4A of the hepatic dome with peripheral nodularenhancement measuring 1.8 cm. Gallbladder is normal. PANCREAS: Normal. SPLEEN: Absent spleen with multiple splenules in the left upperquadrant. 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 Normalleft adrenal gland. KIDNEYS/BLADDER: Left kidney is surgically absent with compensatoryhypertrophy of the right kidney. No right hydroureteronephrosis. Bladderis normal. BOWEL: Normal including the appendix. No free fluid or free air. LYMPH NODES: Normal. VASCULATURE: Minimal aortoiliac atherosclerotic calcification. Noabdominal aortic aneurysm. PELVIC ORGANS: Normal. MUSCULOSKELETAL: Focal anterior osteophyte formation in the midthoracicspine. No suspicious osseous lesions or acute fractures. IMPRESSION: 1. Indeterminate 1.8 cm hypoattenuating lesion in the hepatic dome,favoring a benign hemangioma. Consider definitive confirmation with liverprotocol MRI. 2. Mildly prominent bilateral hilar lymphatic tissues without definitelymphadenopathy in the chest, indeterminate, either reactive orphysiologic. 3. No primary malignancy identified in the chest, abdomen and pelvis. 4. Absent spleen and left kidney with multiple left upper quadrantsplenules. Kera Dasilva APRN AGRICULTURAL PILOT IMG CT ORDERABLES Final Result * (ABNORMAL) Glucose by meter (09/15/2024 9:13 PM CDT) [facility] GLUCOSE BY METER POCT 286(H) 70 - 99 mg/dL 09/15/2024 9:21 PM CDT LABORATORY POC Comment:Dr/RN Notified Blood, Capillary BLOOD SPECIMEN / Unknown 09/15/2024 9:13 PM CDT 09/15/2024 9:21 PM CDT Trish Gandara DO LAB - BEAKER POCT Final R esult LABORATORY POC [facility] Lab [address] [facility] Lab (1st floor, no room number) [place] [address], [facility] * Protein S Antigen Free (09/15/2024 5:08 PM CDT) Pathologist [facility] Protein S Antigen Free 103 55 - 148 % 09/18/2024 10:02 AM CDT [facility] Comment: Sex Specific Reference Ranges: Female 55-125% Male 70-148% Blood STRUCTURE OF LEFT UPPER LIMB / Unknown Venipuncture / Unknown 09/15/2024 5:08 PM CDT 09/15/2024 5:17 PM CDT Narrative [facility] - 09/18/2024 10:02 AM CDT The generation of reference intervals for this test is currently based on binary male or female sex. If the electronic health record information indicates another gender identity or if Legal Sex is recorded as Unknown, both male and female reference intervals are provided where applicable, and should be considered according to the individual's appropriate clinical context. Kera Dasilva APRN [facility] LAB - BLOOD ORDERABLES Final Result Performing Organization Address City/[facility] Co de Phone Number [facility] [address] [facility], [address] [phone] * Protein C chromogenic (09/15/2024 5:08 PM CDT) Protein C Chromogenic 149 70 - 170 % 09/18/2024 10:02 AM CDT [facility] Blood STRUCTURE OF LEFT UPPER LIMB / Unknown Venipuncture / Unknown 09/15/2024 5:08 PM CDT 09/15/2024 5:17 PM CDT Kera Dasilva APRN, CNP LAB - BLOOD ORDERABLES Final Result Performing Organization Address [facility] de Phone Number [facility] [address] [facility], [address] [phone] * Lupus Anticoagulant Panel (09/15/2024 5:08 PM CDT) PTT Ratio 0.97 <1.30 5 1:58 PM CDT [facility] DRVVT Screen Ratio 0.91 <1.08 5 1:58 PM CDT [facility] Lupus Result Negative Negative 5 1:58 PM CDT [facility] Lupus Interpretation Results APTT ratio is normal. DRVVT Screen ratio is normal. Interpretation NEGATIVE TEST; A LUPUS ANTICOAGULANT WAS NOT DETECTED IN THIS SPECIMEN WITHIN THE LIMITS OF THE TESTING REPERTOIRE. Recommendations If the clinical picture is strongly suggestive of an antiphospholipid syndrome, recommend anticardiolipin and [id number] n (IgG and IgM) antibody tests. Jessica Del Valle MD, PhD [facility] 1:58 PM CDT [facility] Blood STRUCTURE OF LEFT UPPER LIMB / Unknown Venipuncture / Unknown 09/15/2024 5:08 PM CDT 09/15/2024 5:17 PM CDT Kera Dasilva APRN AGRICULTURAL PILOT LAB - BLOOD ORDERABLES Final Result Performing Organization Address City/[facility]/ZIP Co de Phone Number [facility] [address] [facility] [address], [address] [address], [facility] SPECIAL[facility] LABS Specialty Lab [address] [facility] [address], [address] [address], [facility] * Antithrombin III (09/15/2024 5:08 PM CDT) Antithrombin III 99 85 - 135 % 09/19/19 10:02 AM CDT [facility] Blood STRUCTURE OF LEFT UPPER LIMB / Unknown Venipuncture / Unknown 09/15/2024 5:08 PM CDT 09/15/2024 5:17 PM CDT Kera Dasilva APRN AGRICULTURAL PILOT LAB - BLOOD ORDERABLES Final Result Performing Organization Address [facility] Co de Phone Number [facility] [address] [facility] [address], [address] [address], [facility] * (ABNORMAL) Glucose by meter (09/15/2024 4:46 PM CDT) GLUCOSE BY METER POCT 265(H) 70 - 99 mg/dL 09/15/2024 4:53 PM CDT LABORATORY POC Blood, Capillary BLOOD SPECIMEN / Unknown 09/15/2024 4:46 PM CDT 09/15/2024 4:53 PM CDT Trish Gandara DO LAB - BEAKER POCT Final R esult [facility] Acute Care Lab [address] [facility] Lab (1st floor, no room number) [place] [address], [facility] * CTA Head Neck with Contrast (09/15/2024 2:15 PM CDT) Anatomical Region Laterality Modality Head, SUBRAD CT NEURO, SUBRA D CT NEURO, UMP CT NEURO, RAD CT Computed Tomography 09/15/2024 2:15 PM CDT Impressions 09/15/2024 2:44 PM CDT IMPRESSION: HEAD CTA: 1. Short segment near occlusion/occlusion of the superior branch of the left P2 CIRCULAR SAW OPERATOR with distal reconstitution. 2. No high-grade stenosis or occlusion of the remaining intracranial arteries.. NECK CTA: No high-grade stenosis of the major cervical arteries. Narrative 09/15/2024 2:44 PM CDT EXAM: CTA HEAD NECK W CONTRAST LOCATION: [facility] DATE: 09/15/2024 INDICATION: new multifocal infarcts, L P2 stenosis vs occlusion COMPARISON: Same day brain MRI and MR angiograms. CONTRAST: 67 mL Isovue 370 TECHNIQUE: Head and neck CT angiogram with IV contrast. Axial helical CT images of the head and neck vessels obtained during the arterial phase of intravenous contrast administration. Axial 2D reconstructed images and multiplanar 3D MIP reconstructed images of the head and neck vessels were performed by the technologist. Dose reduction techniques were used. All stenosis measurements made according to NASCET criteria unless otherwise specified. FINDINGS: HEAD CTA: ANTERIOR CIRCULATION: No high-grade stenosis/occlusion, aneurysm, or high flow vascular malformation. Standard [place] anatomy. POSTERIOR CIRCULATION: Short segment (0.6 cm) near occlusion/occlusion of the superior branch of the left P2 CIRCULAR SAW OPERATOR (series 6 image 459 and series 905 image 61) with distal reconstitution of the P2/P3 segment (series 6 image 470). No aneurysm or high flow vascular malformation. Dominant right and smaller left vertebral artery contribute to a normal basilar artery. DURAL VENOUS SINUSES: Expected enhancement of the major dural venous sinuses. NECK CTA: RIGHT CAROTID: No measurable stenosis or dissection. LEFT CAROTID: No measurable stenosis or dissection. VERTEBRAL ARTERIES: No focal stenosis or dissection. Dominant right and smaller left vertebral arteries. AORTIC ARCH: Bovine origin left common carotid artery. No significant stenosis at the origin of the great vessels. NONVASCULAR STRUCTURES: Unremarkable. Procedure Note Renard Guerrero MD - 09/15/2024 EXAM: CTA HEAD NECK W CONTRAST LOCATION: [facility] DATE: 09/15/2024 INDICATION: new multifocal infarcts, L P2 stenosis vs occlusion COMPARISON: Same day brain MRI and MR angiograms. CONTRAST: 67 mL Isovue 370 TECHNIQUE: Head and neck CT angiogram with IV contrast. Axial helical CTimages of the head and neck vessels obtained during the arterial phase ofintravenous contrast administration. Axial 2D reconstructed images andmultiplanar 3D MIP reconstructed images of the head and neck vessels were performed by the technologist.Dose reduction techniques were used. All stenosis measurements madeaccording to NASCET criteria unless otherwise specified. FINDINGS: HEAD CTA: ANTERIOR CIRCULATION: No high-grade stenosis/occlusion, aneurysm, or highflow vascular malformation. Standard [place] anatomy. POSTERIOR CIRCULATION: Short segment (0.6 cm) near occlusion/occlusion ofthe superior branch of the left P2 CIRCULAR SAW OPERATOR (series 6 image 459 and series 905image 61) with distal reconstitution of the P2/P3 segment (series 6 ). No aneurysm or high flow vascular malformation. Dominant right and smaller left vertebral arterycontribute to a normal basilar artery. DURAL VENOUS SINUSES: Expected enhancement of the major dural venoussinuses. NECK CTA: RIGHT CAROTID: No measurable stenosis or dissection. LEFT CAROTID: No measurable stenosis or dissection. VERTEBRAL ARTERIES: No focal stenosis or dissection. Dominant right andsmaller left vertebral arteries. AORTIC ARCH: Bovine origin left common carotid artery. No significantstenosis at the origin of the great vessels. NONVASCULAR STRUCTURES: Unremarkable. IMPRESSION: HEAD CTA: 1. Short segment near occlusion/occlusion of the superior branch of theleft P2 CIRCULAR SAW OPERATOR with distal reconstitution. 2. No high-grade stenosis or occlusion of the remaining intracranialarteries.. NECK CTA: No high-grade stenosis of the major cervical arteries. Kera Dasilva APRN AGRICULTURAL PILOT IMG CT ORDERABLES Final Result * US Lower Extremity Venous Duplex Bilateral (09/15/2024 2:04 PM CDT) Anatomical Region Laterality Modality Vascular, Thigh, Leg Ultrasound 09/15/2024 2:04 PM CDT Impressions 09/15/2024 2:06 PM CDT IMPRESSION: 1. No deep venous thrombosis in the bilateral lower extremities. Narrative 09/15/2024 2:06 PM CDT EXAM: US LOWER EXTREMITY VENOUS DUPLEX BILATERAL LOCATION: [facility] DATE: 09/15/2024 INDICATION: evaluate for DVT. COMPARISON: None. TECHNIQUE: Venous Duplex ultrasound of bilateral lower extremities with and without compression, augmentation and duplex. Color flow and spectral Doppler with waveform analysis performed. FINDINGS: Exam includes the common femoral, femoral, popliteal veins as well as segmentally visualized deep calf veins and greater saphenous vein. RIGHT: No deep vein thrombosis. No superficial thrombophlebitis. No popliteal cyst. LEFT: No deep vein thrombosis. No superficial thrombophlebitis. No popliteal cyst. Procedure Note Beto Montalvo MD - 09/15/2024 EXAM: US LOWER EXTREMITY VENOUS DUPLEX BILATERAL LOCATION: [facility] DATE: 09/15/2024 INDICATION: evaluate for DVT. COMPARISON: None. TECHNIQUE: Venous Duplex ultrasound of bilateral lower extremities withand without compression, augmentation and duplex. Color flow and spectralDoppler with waveform analysis performed. FINDINGS: Exam includes the common femoral, femoral, popliteal veins aswell as segmentally visualized deep calf veins and greater saphenous vein. RIGHT: No deep vein thrombosis. No superficial thrombophlebitis. Nopopliteal cyst. LEFT: No deep vein thrombosis. No superficial thrombophlebitis. Nopopliteal cyst. IMPRESSION: 1. No deep venous thrombosis in the bilateral lower extremities. us Edvin Guillen APRN AGRICULTURAL PILOT IMG US ORDERABLES Fin al Result * ECHO COMPLETE BUBBLE (09/15/2024 1:26 PM CDT) LVEF 55-60% CARDIOLOGY RESULTS Anatomical Region Laterality Modality Echocardiography 09/15/2024 12:3 8 PM CDT Narrative 09/15/2024 2:46 PM CDT [id number]^BROWN^KERA^[facility] Echocardiography Laboratory [address] [place] [address] Name: SHUN MIGUEL : 1980 Study Date: 09/15/2024 12:38 PM Age: 43 yrs Gender: Male Patient Location: [facility] Reason For Study: CVA Ordering Physician: KERA DASILVA Performed By: Kristina Mueller BSA: 2.7 m2 Height: 72 in Weight: 340 lb HR: 71 BP: 129/95 mmHg Procedure Echocardiogram with two-dimensional, color and spectral Doppler. Bubble Echocardiogram with two-dimensional, color and spectral Doppler. Interpretation Summary A cardiac source of embolus was not identified. A contrast injection (Bubble Study) was performed that was negative for flow across the interatrial septum. There is no color Doppler evidence of an atrial shunt. Sinus rhythm was noted. Left ventricular systolic function is normal. The visual ejection fraction is 55-60%. The left ventricle is normal in size. The right ventricle is normal in structure, function and size. Doppler interrogation does not demonstrate signficant stenosis or insufficiency involving cardiac valves. No old studies for comparion Left Ventricle The left ventricle is normal in size. There is normal left ventricular wall thickness. Left ventricular systolic function is normal. The visual ejection fraction is 55-60%. Left ventricular diastolic function is normal. No regional wall motion abnormalities noted. There is no thrombus seen in the left ventricle. Right Ventricle The right ventricle is normal in structure, function and size. There is no mass or thrombus in the right ventricle. Atria Normal left atrial size. Right atrial size is normal. A contrast injection (Bubble Study) was performed that was negative for flow across the interatrial septum. There is no color Doppler evidence of an atrial shunt. The left atrial appendage is not well visualized. Mitral Valve The mitral valve leaflets appear normal. There is no evidence of stenosis, fluttering, or prolapse. There is no mitral regurgitation noted. There is no mitral valve stenosis. Tricuspid Valve Normal tricuspid valve. No tricuspid regurgitation. Right ventricular systolic pressure could not be approximated due to inadequate tricuspid regurgitation. There is no tricuspid stenosis. Aortic Valve The aortic valve is trileaflet. No aortic regurgitation is present. No aortic stenosis is present. Pulmonic Valve Normal pulmonic valve. There is no pulmonic valvular regurgitation. There is no pulmonic valvular stenosis. Vessels The aortic root is normal size. Normal size ascending aorta. The inferior vena cava is normal. The pulmonary artery is normal size. Pericardium The pericardium appears normal. There is no pleural effusion. Rhythm Sinus rhythm was noted. MMode/2D Measurements & Calculations IVSd: 1.1 cm LVIDd: 4.9 cm LVIDs: 3.2 cm LVPWd: 1.0 cm IVC diam: 1.8 cm FS: 35.1 % LV mass(C)d: 189.9 grams LV mass(C)dI: 71.2 grams/m2 Ao root diam: 3.5 cm asc Aorta Diam: 3.5 cm LVOT diam: 2.5 cm LVOT area: 4.7 cm2 Ao root diam index Ht(cm/m): 1.9 Ao root diam index BSA (cm/m2): 1.3 Asc Ao diam index BSA (cm/m2): 1.3 Asc Ao diam index Ht(cm/m): 1.9 LA Volume (BP): 43.7 ml LA Volume Index (BP): 16.4 ml/m2 RWT: 0.42 TAPSE: 2.3 cm Doppler Measurements & Calculations MV E max triston: 57.1 cm/sec MV A max triston: 52.1 cm/sec MV E/A: 1.1 MV dec slope: 343.0 cm/sec2 MV dec time: 0.17 sec Ao V2 max: 97.9 cm/sec Ao max P.0 mmHg Ao V2 mean: 72.1 cm/sec Ao mean P.3 mmHg Ao V2 VTI: 19.8 cm JOLLY(I,D): 4.2 cm2 JOLLY(V,D): 4.4 cm2 LV V1 max P.3 mmHg LV V1 max: 91.1 cm/sec LV V1 VTI: 17.8 cm SV(LVOT): 84.1 ml SI(LVOT): 31.5 ml/m2 AV Triston Ratio (DI): 0.93 JOLLY Index (cm2/m2): 1.6 E/E' av.9 Lateral E/e': 4.8 Medial E/e': 5.1 RV S Triston: 11.5 cm/sec Report approved by: Dr. Parker Casillas on 09/15/2024 02:46 PM Procedure Note Parker Casillas MD - 09/15/2024 [id number]^BROWN^KERA^[facility] Echocardiography Laboratory [address] [place] [id number] Name: SHUN MIGUEL : 1980 Study Date: 09/15/2024 12:38 PM Age: 43 yrs Gender: Male Patient Location: [facility] Reason For Study: CVA Ordering Physician: KERA DASILVA Performed By: Kristina Mueller BSA: 2.7 m2 Height: 72 in Weight: 340 lb HR: 71 BP: 129/95 mmHg Procedure Echocardiogram with two-dimensional, color and spectral Doppler. Bubble Echocardiogram with two-dimensional, color and spectral Doppler. Interpretation Summary A cardiac source of embolus was not identified. A contrast injection (Bubble Study) was performed that was negative forflow across the interatrial septum. There is no color Doppler evidence of an atrial shunt. Sinus rhythm was noted. Left ventricular systolic function is normal. The visual ejection fraction is 55-60%. The left ventricle is normal in size. The right ventricle is normal in structure, function and size. Doppler interrogation does not demonstrate signficant stenosis or insufficiency involving cardiac valves. No old studies for comparion Left Ventricle The left ventricle is normal in size. There is normal left ventricularwall thickness. Left ventricular systolic function is normal. The visualejection fraction is 55-60%. Left ventricular diastolic function is normal. Noregional wall motion abnormalities noted. There is no thrombus seen in the left ventricle. Right Ventricle The right ventricle is normal in structure, function and size. There isno mass or thrombus in the right ventricle. Atria Normal left atrial size. Right atrial size is normal. A contrastinjection (Bubble Study) was performed that was negative for flow across theinteratrial septum. There is no color Doppler evidence of an atrial shunt. The leftatrial appendage is not well visualized. Mitral Valve The mitral valve leaflets appear normal. There is no evidence ofstenosis, fluttering, or prolapse. There is no mitral regurgitation noted. There isno mitral valve stenosis. Tricuspid Valve Normal tricuspid valve. No tricuspid regurgitation. Right ventricularsystolic pressure could not be approximated due to inadequate tricuspidregurgitation. There is no tricuspid stenosis. Aortic Valve The aortic valve is trileaflet. No aortic regurgitation is present. Noaortic stenosis is present. Pulmonic Valve Normal pulmonic valve. There is no pulmonic valvular regurgitation. Thereis no pulmonic valvular stenosis. Vessels The aortic root is normal size. Normal size ascending aorta. The inferiorvena cava is normal. The pulmonary artery is normal size. Pericardium The pericardium appears normal. There is no pleural effusion. Rhythm Sinus rhythm was noted. MMode/2D Measurements & Calculations IVSd: 1.1 cm LVIDd: 4.9 cm LVIDs: 3.2 cm LVPWd: 1.0 cm IVC diam: 1.8 cm FS: 35.1 % LV mass(C)d: 189.9 grams LV mass(C)dI: 71.2 grams/m2 Ao root diam: 3.5 cm asc Aorta Diam: 3.5 cm LVOT diam: 2.5 cm LVOT area: 4.7 cm2 Ao root diam index Ht(cm/m): 1.9 Ao root diam index BSA (cm/m2): 1.3 Asc Ao diam index BSA (cm/m2): 1.3 Asc Ao diam index Ht(cm/m): 1.9 LA Volume (BP): 43.7 ml LA Volume Index (BP): 16.4 ml/m2 RWT: 0.42 TAPSE: 2.3 cm Doppler Measurements & Calculations MV E max triston: 57.1 cm/sec MV A max triston: 52.1 cm/sec MV E/A: 1.1 MV dec slope: 343.0 cm/sec2 MV dec time: 0.17 sec Ao V2 max: 97.9 cm/sec Ao max P.0 mmHg Ao V2 mean: 72.1 cm/sec Ao mean P.3 mmHg Ao V2 VTI: 19.8 cm JOLLY(I,D): 4.2 cm2 JOLLY(V,D): 4.4 cm2 LV V1 max P.3 mmHg LV V1 max: 91.1 cm/sec LV V1 VTI: 17.8 cm SV(LVOT): 84.1 ml SI(LVOT): 31.5 ml/m2 AV Triston Ratio (DI): 0.93 JOLLY Index (cm2/m2): 1.6 E/E' av.9 Lateral E/e': 4.8 Medial E/e': 5.1 RV S Triston: 11.5 cm/sec Report approved by: Dr. Parker Casillas on 09/15/2024 02:46 PM Kera Dasilva APRN AGRICULTURAL PILOT CV ECHO ORDERABLES Edit ed Result - Final * (ABNORMAL) Glucose by meter (09/15/2024 12:17 PM CDT) Pathologist [facility] GLUCOSE BY METER POCT 314(H) 70 - 99 mg/dL 09/15/2024 12:25 PM CDT [facility] LABORATORY POC Blood, Capillary BLOOD SPECIMEN / Unknown 09/15/2024 12:17 PM CDT 09/15/2024 12:25 PM CDT Guanaco Birmingham MD LAB - BEAKER POCT Final Result LABORATORY [facility] [address] (1st floor, no room number) [place] [address] * (ABNORMAL) Glucose by meter (09/15/2024 10:24 AM CDT) [facility] Signature GLUCOSE BY METER POCT 304(H) 70 - 99 mg/dL 09/15/2024 10:36 AM CDT LABORATORY POC Blood, Capillary BLOOD SPECIMEN / Unknown 09/15/2024 10:24 AM CDT 09/15/2024 10:36 AM CDT Guanaco Birmingham MD LAB - BEAKER POCT Final Result Performing Organization Address City/[facility]/ZIP Co de Phone Number LABORATORY [facility] [address] [facility] (1st floor, no room number) [place] [address] * MRA Angiogram Neck w/o & w Contrast (09/15/2024 10:21 AM CDT) Anatomical Region Laterality Modality Neck, SUBRAD MR NEURO, UMP MR NEURO, RAD MR Magnetic Resonance 09/15/2024 10:2 1 AM CDT Impressions 09/15/2024 12:03 PM CDT IMPRESSION: HEAD MRI: 1. Multifocal areas of restricted diffusion including ovoid region in the right basal ganglia, corpus callosum particularly on the left, patchy areas in the posterior left hippocampus, and small cortical areas in the left occipital lobe. 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 The abnormality in the corpus callosum is a slightly atypical location for infarct, although the abnormality in the left CIRCULAR SAW OPERATOR would correlate. There may be some petechial hemorrhage within the area of presumed infarct in the left corpus callosum. 2. Apparent mild leptomeningeal enhancement in the medial left occipital lobe is in the area of infarct and could represent vascular congestion. 3. Recommend follow-up MRI in 4-6 weeks to ensure expected evolution. HEAD MRA: 1. Normal MRA [place]. NECK MRA: 1. 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 There is reconstitution of a vessel approximately 0.6 cm distal to the stenosis/occlusion. 2. No other vascular cutoff of the proximal major intracranial arteries. Narrative 09/15/2024 12:03 PM CDT EXAM: MR BRAIN WITHOUT AND WITH CONTRAST, MRA BRAIN ([place]) WITHOUT CONTRAST, MRA NECK (CAROTIDS) WITHOUT AND WITH CONTRAST LOCATION: [facility] DATE: 09/15/2024 INDICATION: Transient global amnesia. COMPARISON: Head CT 09/15/2024. Brain MR 03/30/2013. CONTRAST: 10 mL Gadavist. TECHNIQUE: 1) Routine multiplanar multisequence head MRI without and with intravenous contrast. 2) 3D [id number] head MRA without intravenous contrast. 3) Neck MRA without and with IV contrast. Stenosis measurements made according to NASCET criteria unless otherwise specified. FINDINGS: HEAD MRI: INTRACRANIAL CONTENTS: Region of restricted diffusion and T2 hyperintensity in the right anterior basal ganglia measuring approximately 2.6 x 1.6 cm. Small cortical areas of restricted diffusion in the posteromedial left occipital lobe with mild associated T2 hyperintensity. Area of restricted diffusion in the splenium of the corpus callosum particularly on the left. Faint restricted diffusion with T2 hyperintensity throughout bilateral regions of the corpus callosum of the splenium. There is a more focal area of T2 hyperintensity with central T2 hypointensity in the left splenium of the corpus callosum with subtle susceptibility hypointensity in that area. Subtle punctate foci of restricted diffusion also in the posterior left hippocampus. No large parenchymal hemorrhage. No midline shift or herniation. Ventricular size is within normal limits without evidence of hydrocephalus. Subtle leptomeningeal enhancement in the posteromedial left cerebellum. SELLA: No abnormality accounting for technique. OSSEOUS STRUCTURES/SOFT TISSUES: Normal marrow signal. ORBITS: No abnormality accounting for technique. SINUSES/MASTOIDS: No paranasal sinus mucosal disease. No middle ear or mastoid effusion. HEAD MRA: Apparent severe stenosis/occlusion of a distal left P2 branch which appears to be extending into the vicinity of the posterior left hippocampus. There is a more distal left CIRCULAR SAW OPERATOR branch which opacifies approximately 0.6 cm distal to the stenosis/occlusion. No other vascular cutoffs of the proximal ACAs, MCAs, or inspector bullet slugs. Prominent right posterior communicating artery also with the right P1 segment present, likely an anatomic variant. No intracranial aneurysm. NECK MRA: RIGHT CAROTID: No measurable stenosis or dissection. LEFT CAROTID: No measurable stenosis or dissection. VERTEBRAL ARTERIES: No focal stenosis or dissection. Balanced vertebral arteries. AORTIC ARCH: Classic aortic arch anatomy with no significant stenosis at the origin of the great vessels. Procedure Note Chinmay Knapp MD - 09/15/2024 EXAM: MR BRAIN WITHOUT AND WITH CONTRAST, MRA BRAIN ([place])WITHOUT CONTRAST, MRA NECK (CAROTIDS) WITHOUT AND WITH CONTRAST LOCATION: [facility] DATE: 09/15/2024 INDICATION: Transient global amnesia. COMPARISON: Head CT 09/15/2024. Brain MR 03/30/2013. CONTRAST: 10 mL Gadavist. TECHNIQUE: 1) Routine multiplanar multisequence head MRI without and with intravenouscontrast. 2) 3D [id number] head MRA without intravenous contrast. 3) Neck MRA without and with IV contrast. Stenosis measurements madeaccording to NASCET criteria unless otherwise specified. FINDINGS: HEAD MRI: INTRACRANIAL CONTENTS: Region of restricted diffusion and [id number] in the right anterior basal ganglia measuring approximately2.6 x 1.6 cm. Small cortical areas of restricted diffusion in theposteromedial left occipital lobe with mild associated T2 hyperintensity. Area of restricted diffusion in the spleniumof the corpus callosum particularly on the left. Faint restricteddiffusion with T2 hyperintensity throughout bilateral regions of thecorpus callosum of the splenium. There is a more focal area of T2 hyperintensity with central T2 hypointensity in theleft splenium of the corpus callosum with subtle susceptibilityhypointensity in that area. Subtle punctate foci of restricted diffusionalso in the posterior left hippocampus. No large parenchymal hemorrhage. No midline shift or herniation.Ventricular size is within normal limits without evidence ofhydrocephalus. Subtle leptomeningeal enhancement in the posteromedial left cerebellum. SELLA: No abnormality accounting for technique. OSSEOUS STRUCTURES/SOFT TISSUES: Normal marrow signal. ORBITS: No abnormality accounting for technique. SINUSES/MASTOIDS: No paranasal sinus mucosal disease. No middle ear ormastoid effusion. HEAD MRA: Apparent severe stenosis/occlusion of a distal left P2 branch whichappears to be extending into the vicinity of the posterior lefthippocampus. There is a more distal left CIRCULAR SAW OPERATOR branch which opacifiesapproximately 0.6 cm distal to the stenosis/occlusion. No other vascular cutoffs of the proximal ACAs, MCAs, or inspector bullet slugs. Prominentright posterior communicating artery also with the right P1 segmentpresent, likely an anatomic variant. No intracranial aneurysm. NECK MRA: RIGHT CAROTID: No measurable stenosis or dissection. LEFT CAROTID: No measurable stenosis or dissection. VERTEBRAL ARTERIES: No focal stenosis or dissection. Balanced vertebralarteries. AORTIC ARCH: Classic aortic arch anatomy with no significant stenosis atthe origin of the great vessels. IMPRESSION: HEAD MRI: 1. Multifocal areas of restricted diffusion including ovoid region in theright basal ganglia, corpus callosum particularly on the left, patchyareas in the posterior left hippocampus, and small cortical areas in theleft occipital lobe. Overall, the findings are favored to represent multifocal infarcts, however otherinflammatory etiologies are not entirely excluded. The abnormality in thecorpus callosum is a slightly atypical location for infarct, although theabnormality in the left CIRCULAR SAW OPERATOR would correlate. There may be some petechial hemorrhage within the area ofpresumed infarct in the left corpus callosum. 2. Apparent mild leptomeningeal enhancement in the medial left occipitallobe is in the area of infarct and could represent vascular congestion. 3. Recommend follow-up MRI in 4-6 weeks to ensure expected evolution. HEAD MRA: 1. Normal MRA [place]. NECK MRA: 1. 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 There is reconstitution of a vesselapproximately 0.6 cm distal to the stenosis/occlusion. 2. No other vascular cutoff of the proximal major intracranialarteries. Guanaco Birmingham MD [facility] MRI ORDERABLES Final Result * MRA Angiogram Head w/o Contrast (09/15/2024 10:21 AM CDT) Anatomical Region Laterality Modality Head, SUBRAD MR NEURO, UMP MR NEURO, RAD MR Magnetic Resonance 09/15/2024 10:2 1 AM CDT Impressions 09/15/2024 12:03 PM CDT IMPRESSION: HEAD MRI: 1. Multifocal areas of restricted diffusion including ovoid region in the right basal ganglia, corpus callosum particularly on the left, patchy areas in the posterior left hippocampus, and small cortical areas in the left occipital lobe. 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 The abnormality in the corpus callosum is a slightly atypical location for infarct, although the abnormality in the left CIRCULAR SAW OPERATOR would correlate. There may be some petechial hemorrhage within the area of presumed infarct in the left corpus callosum. 2. Apparent mild leptomeningeal enhancement in the medial left occipital lobe is in the area of infarct and could represent vascular congestion. 3. Recommend follow-up MRI in 4-6 weeks to ensure expected evolution. HEAD MRA: 1. Normal MRA [place]. NECK MRA: 1. 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 There is reconstitution of a vessel approximately 0.6 cm distal to the stenosis/occlusion. 2. No other vascular cutoff of the proximal major intracranial arteries. Narrative 09/15/2024 12:03 PM CDT EXAM: MR BRAIN WITHOUT AND WITH CONTRAST, MRA BRAIN ([place]) WITHOUT CONTRAST, MRA NECK (CAROTIDS) WITHOUT AND WITH CONTRAST LOCATION: [facility] DATE: 09/15/2024 INDICATION: Transient global amnesia. COMPARISON: Head CT 09/15/2024. Brain MR 03/30/2013. CONTRAST: 10 mL Gadavist. TECHNIQUE: 1) Routine multiplanar multisequence head MRI without and with intravenous contrast. 2) 3D [id number] head MRA without intravenous contrast. 3) Neck MRA without and with IV contrast. Stenosis measurements made according to NASCET criteria unless otherwise specified. FINDINGS: HEAD MRI: INTRACRANIAL CONTENTS: Region of restricted diffusion and T2 hyperintensity in the right anterior basal ganglia measuring approximately 2.6 x 1.6 cm. Small cortical areas of restricted diffusion in the posteromedial left occipital lobe with mild associated T2 hyperintensity. Area of restricted diffusion in the splenium of the corpus callosum particularly on the left. Faint restricted diffusion with T2 hyperintensity throughout bilateral regions of the corpus callosum of the splenium. There is a more focal area of T2 hyperintensity with central T2 hypointensity in the left splenium of the corpus callosum with subtle susceptibility hypointensity in that area. Subtle punctate foci of restricted diffusion also in the posterior left hippocampus. No large parenchymal hemorrhage. No midline shift or herniation. Ventricular size is within normal limits without evidence of hydrocephalus. Subtle leptomeningeal enhancement in the posteromedial left cerebellum. SELLA: No abnormality accounting for technique. OSSEOUS STRUCTURES/SOFT TISSUES: Normal marrow signal. ORBITS: No abnormality accounting for technique. SINUSES/MASTOIDS: No paranasal sinus mucosal disease. No middle ear or mastoid effusion. HEAD MRA: Apparent severe stenosis/occlusion of a distal left P2 branch which appears to be extending into the vicinity of the posterior left hippocampus. There is a more distal left CIRCULAR SAW OPERATOR branch which opacifies approximately 0.6 cm distal to the stenosis/occlusion. No other vascular cutoffs of the proximal ACAs, MCAs, or inspector bullet slugs. Prominent right posterior communicating artery also with the right P1 segment present, likely an anatomic variant. No intracranial aneurysm. NECK MRA: RIGHT CAROTID: No measurable stenosis or dissection. LEFT CAROTID: No measurable stenosis or dissection. VERTEBRAL ARTERIES: No focal stenosis or dissection. Balanced vertebral arteries. AORTIC ARCH: Classic aortic arch anatomy with no significant stenosis at the origin of the great vessels. Procedure Note Chinmay Knapp MD - 09/15/2024 EXAM: MR BRAIN WITHOUT AND WITH CONTRAST, MRA BRAIN ([place])WITHOUT CONTRAST, MRA NECK (CAROTIDS) WITHOUT AND WITH CONTRAST LOCATION: [facility] DATE: 09/15/2024 INDICATION: Transient global amnesia. COMPARISON: Head CT 09/15/2024. Brain MR 03/30/2013. CONTRAST: 10 mL Gadavist. TECHNIQUE: 1) Routine multiplanar multisequence head MRI without and with intravenouscontrast. 2) 3D zqqt-sj-ifthyz head MRA without intravenous contrast. 3) Neck MRA without and with IV contrast. Stenosis measurements madeaccording to NASCET criteria unless otherwise specified. FINDINGS: HEAD MRI: INTRACRANIAL CONTENTS: Region of restricted diffusion and R1zhectdsdikgywy in the right anterior basal ganglia measuring approximately2.6 x 1.6 cm. Small cortical areas of restricted diffusion in theposteromedial left occipital lobe with mild associated T2 hyperintensity. Area of restricted diffusion in the spleniumof the corpus callosum particularly on the left. Faint restricteddiffusion with T2 hyperintensity throughout bilateral regions of thecorpus callosum of the splenium. There is a more focal area of T2 hyperintensity with central T2 hypointensity in theleft splenium of the corpus callosum with subtle susceptibilityhypointensity in that area. Subtle punctate foci of restricted diffusionalso in the posterior left hippocampus. No large parenchymal hemorrhage. No midline shift or herniation.Ventricular size is within normal limits without evidence ofhydrocephalus. Subtle leptomeningeal enhancement in the posteromedial left cerebellum. SELLA: No abnormality accounting for technique. OSSEOUS STRUCTURES/SOFT TISSUES: Normal marrow signal. ORBITS: No abnormality accounting for technique. SINUSES/MASTOIDS: No paranasal sinus mucosal disease. No middle ear ormastoid effusion. HEAD MRA: Apparent severe stenosis/occlusion of a distal left P2 branch whichappears to be extending into the vicinity of the posterior lefthippocampus. There is a more distal left CIRCULAR SAW OPERATOR branch which opacifiesapproximately 0.6 cm distal to the stenosis/occlusion. No other vascular cutoffs of the proximal ACAs, MCAs, or inspector bullet slugs. Prominentright posterior communicating artery also with the right P1 segmentpresent, likely an anatomic variant. No intracranial aneurysm. NECK MRA: RIGHT CAROTID: No measurable stenosis or dissection. LEFT CAROTID: No measurable stenosis or dissection. VERTEBRAL ARTERIES: No focal stenosis or dissection. Balanced vertebralarteries. AORTIC ARCH: Classic aortic arch anatomy with no significant stenosis atthe origin of the great vessels. IMPRESSION: HEAD MRI: 1. Multifocal areas of restricted diffusion including ovoid region in theright basal ganglia, corpus callosum particularly on the left, patchyareas in the posterior left hippocampus, and small cortical areas in theleft occipital lobe. Overall, the findings are favored to represent multifocal infarcts, however otherinflammatory etiologies are not entirely excluded. The abnormality in thecorpus callosum is a slightly atypical location for infarct, although theabnormality in the left CIRCULAR SAW OPERATOR would correlate. There may be some petechial hemorrhage within the area ofpresumed infarct in the left corpus callosum. 2. Apparent mild leptomeningeal enhancement in the medial left occipitallobe is in the area of infarct and could represent vascular congestion. 3. Recommend follow-up MRI in 4-6 weeks to ensure expected evolution. HEAD MRA: 1. Normal MRA [place]. NECK MRA: 1. 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 There is reconstitution of a vesselapproximately 0.6 cm distal to the stenosis/occlusion. 2. No other vascular cutoff of the proximal major intracranialarteries. us Guanaco Birmingham MD IMG MRI ORDERABLES Final Result * MR Brain w/o & w Contrast (09/15/2024 10:21 AM CDT) Anatomical Region Laterality Modality Head, SUBRAD MR NEURO, UMP MR NEURO, RAD MR Magnetic Resonance 09/15/2024 10:2 1 AM CDT Impressions 09/15/2024 12:03 PM CDT IMPRESSION: HEAD MRI: 1. Multifocal areas of restricted diffusion including ovoid region in the right basal ganglia, corpus callosum particularly on the left, patchy areas in the posterior left hippocampus, and small cortical areas in the left occipital lobe. 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 The abnormality in the corpus callosum is a slightly atypical location for infarct, although the abnormality in the left CIRCULAR SAW OPERATOR would correlate. There may be some petechial hemorrhage within the area of presumed infarct in the left corpus callosum. 2. Apparent mild leptomeningeal enhancement in the medial left occipital lobe is in the area of infarct and could represent vascular congestion. 3. Recommend follow-up MRI in 4-6 weeks to ensure expected evolution. HEAD MRA: 1. Normal MRA [place]. NECK MRA: 1. 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 There is reconstitution of a vessel approximately 0.6 cm distal to the stenosis/occlusion. 2. No other vascular cutoff of the proximal major intracranial arteries. Narrative 09/15/2024 12:03 PM CDT EXAM: MR BRAIN WITHOUT AND WITH CONTRAST, MRA BRAIN ([place]) WITHOUT CONTRAST, MRA NECK (CAROTIDS) WITHOUT AND WITH CONTRAST LOCATION: [facility] DATE: 09/15/2024 INDICATION: Transient global amnesia. COMPARISON: Head CT 09/15/2024. Brain MR 03/30/2013. CONTRAST: 10 mL Gadavist. TECHNIQUE: 1) Routine multiplanar multisequence head MRI without and with intravenous contrast. 2) 3D rlyw-mk-vaxpdg head MRA without intravenous contrast. 3) Neck MRA without and with IV contrast. Stenosis measurements made according to NASCET criteria unless otherwise specified. FINDINGS: HEAD MRI: INTRACRANIAL CONTENTS: Region of restricted diffusion and T2 hyperintensity in the right anterior basal ganglia measuring approximately 2.6 x 1.6 cm. Small cortical areas of restricted diffusion in the posteromedial left occipital lobe with mild associated T2 hyperintensity. Area of restricted diffusion in the splenium of the corpus callosum particularly on the left. Faint restricted diffusion with T2 hyperintensity throughout bilateral regions of the corpus callosum of the splenium. There is a more focal area of T2 hyperintensity with central T2 hypointensity in the left splenium of the corpus callosum with subtle susceptibility hypointensity in that area. Subtle punctate foci of restricted diffusion also in the posterior left hippocampus. No large parenchymal hemorrhage. No midline shift or herniation. Ventricular size is within normal limits without evidence of hydrocephalus. Subtle leptomeningeal enhancement in the posteromedial left cerebellum. SELLA: No abnormality accounting for technique. OSSEOUS STRUCTURES/SOFT TISSUES: Normal marrow signal. ORBITS: No abnormality accounting for technique. SINUSES/MASTOIDS: No paranasal sinus mucosal disease. No middle ear or mastoid effusion. HEAD MRA: Apparent severe stenosis/occlusion of a distal left P2 branch which appears to be extending into the vicinity of the posterior left hippocampus. There is a more distal left CIRCULAR SAW OPERATOR branch which opacifies approximately 0.6 cm distal to the stenosis/occlusion. No other vascular cutoffs of the proximal ACAs, MCAs, or inspector bullet slugs. Prominent right posterior communicating artery also with the right P1 segment present, likely an anatomic variant. No intracranial aneurysm. NECK MRA: RIGHT CAROTID: No measurable stenosis or dissection. LEFT CAROTID: No measurable stenosis or dissection. VERTEBRAL ARTERIES: No focal stenosis or dissection. Balanced vertebral arteries. AORTIC ARCH: Classic aortic arch anatomy with no significant stenosis at the origin of the great vessels. Procedure Note Chinmay Knapp MD - 09/15/2024 EXAM: MR BRAIN WITHOUT AND WITH CONTRAST, MRA BRAIN ([place])WITHOUT CONTRAST, MRA NECK (CAROTIDS) WITHOUT AND WITH CONTRAST LOCATION: [facility] DATE: 09/15/2024 INDICATION: Transient global amnesia. COMPARISON: Head CT 09/15/2024. Brain MR 03/30/2013. CONTRAST: 10 mL Gadavist. TECHNIQUE: 1) Routine multiplanar multisequence head MRI without and with intravenouscontrast. 2) 3D dsqj-en-mgfwqm head MRA without intravenous contrast. 3) Neck MRA without and with IV contrast. Stenosis measurements madeaccording to NASCET criteria unless otherwise specified. FINDINGS: HEAD MRI: INTRACRANIAL CONTENTS: Region of restricted diffusion and P6brmivvluvjxycq in the right anterior basal ganglia measuring approximately2.6 x 1.6 cm. Small cortical areas of restricted diffusion in theposteromedial left occipital lobe with mild associated T2 hyperintensity. Area of restricted diffusion in the spleniumof the corpus callosum particularly on the left. Faint restricteddiffusion with T2 hyperintensity throughout bilateral regions of thecorpus callosum of the splenium. There is a more focal area of T2 hyperintensity with central T2 hypointensity in theleft splenium of the corpus callosum with subtle susceptibilityhypointensity in that area. Subtle punctate foci of restricted diffusionalso in the posterior left hippocampus. No large parenchymal hemorrhage. No midline shift or herniation.Ventricular size is within normal limits without evidence ofhydrocephalus. Subtle leptomeningeal enhancement in the posteromedial left cerebellum. SELLA: No abnormality accounting for technique. OSSEOUS STRUCTURES/SOFT TISSUES: Normal marrow signal. ORBITS: No abnormality accounting for technique. SINUSES/MASTOIDS: No paranasal sinus mucosal disease. No middle ear ormastoid effusion. HEAD MRA: Apparent severe stenosis/occlusion of a distal left P2 branch whichappears to be extending into the vicinity of the posterior lefthippocampus. There is a more distal left CIRCULAR SAW OPERATOR branch which opacifiesapproximately 0.6 cm distal to the stenosis/occlusion. No other vascular cutoffs of the proximal ACAs, MCAs, or inspector bullet slugs. Prominentright posterior communicating artery also with the right P1 segmentpresent, likely an anatomic variant. No intracranial aneurysm. NECK MRA: RIGHT CAROTID: No measurable stenosis or dissection. LEFT CAROTID: No measurable stenosis or dissection. VERTEBRAL ARTERIES: No focal stenosis or dissection. Balanced vertebralarteries. AORTIC ARCH: Classic aortic arch anatomy with no significant stenosis atthe origin of the great vessels. IMPRESSION: HEAD MRI: 1. Multifocal areas of restricted diffusion including ovoid region in theright basal ganglia, corpus callosum particularly on the left, patchyareas in the posterior left hippocampus, and small cortical areas in theleft occipital lobe. Overall, the findings are favored to represent multifocal infarcts, however otherinflammatory etiologies are not entirely excluded. The abnormality in thecorpus callosum is a slightly atypical location for infarct, although theabnormality in the left CIRCULAR SAW OPERATOR would correlate. There may be some petechial hemorrhage within the area ofpresumed infarct in the left corpus callosum. 2. Apparent mild leptomeningeal enhancement in the medial left occipitallobe is in the area of infarct and could represent vascular congestion. 3. Recommend follow-up MRI in 4-6 weeks to ensure expected evolution. HEAD MRA: 1. Normal MRA [place]. NECK MRA: 1. 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 There is reconstitution of a vesselapproximately 0.6 cm distal to the stenosis/occlusion. 2. No other vascular cutoff of the proximal major intracranialarteries. Guanaco Birmingham MD IMG MRI ORDERABLES Final Result * (ABNORMAL) Glucose by meter (09/15/2024 8:13 AM CDT) [facility] GLUCOSE BY METER POCT 420(H) 70 - 99 mg/dL 09/15/2024 8:20 AM CDT LABORATORY POC Blood, Capillary BLOOD SPECIMEN / Unknown 09/15/2024 8:13 AM CDT 09/15/2024 8:20 AM CDT Guanaco Birmingham MD LAB - BEAKER POCT Final Result LABORATORY [facility] Acute Care Lab [address] (1st floor, no room number) [place] [address], [facility] * Urine Drug Screen Panel (09/15/2024 8:02 AM CDT) Pathologist [facility] Amphetamines Urine Screen Negative Screen Negative 09/15/2024 8:50 AM CDT [facility] Comment:Cutoff for a negativ e amphetamine is less than 500 ng/mL. Barbituates Urine Screen Negative Screen Negative 09/15/2024 8:50 AM CDT [facility] Comment:Cutoff for a negativ e barbiturate is less than 200 ng/mL. Benzodiazepine Urine Screen Negative Screen Negative 09/15/2024 8:50 AM CDT LABORATORY Comment:Cutoff for a negativ e benzodiazepine is less than 100 ng/mL. Cannabinoids Urine Screen Negative Screen Negative 09/15/2024 8:50 AM CDT LABORATORY Comment:Cutoff for a negativ e cannabinoid is less than 50 ng/mL. Cocaine Urine Screen Negative Screen Negative 09/15/2024 8:50 AM CDT LABORATORY Comment:Cutoff for a negativ e cocaine is less than 300 ng/mL. Fentanyl Qual Urine Screen Negative Screen Negative 09/15/2024 8:50 AM CDT LABORATORY Comment:Cutoff for negative fentanyl is less than 5 ng/mL. Opiates Urine Screen Negative Screen Negative 09/15/2024 8:50 AM CDT LABORATORY Comment:Cutoff for a negativ e opiate is less than 300 ng/mL. PCP Urine Screen Negative Screen Negative 09/15/2024 8:50 AM CDT LABORATORY Comment:Cutoff for a negativ e PCP is less than 25 ng/mL. Urine URINE SPECIMEN OBTAINED BY CLEAN CATCH PROCEDURE / Unknown Non-blood Collection / Unknown 09/15/2024 8:02 AM CDT 09/15/2024 8:09 AM CDT us Tomy Carson MD LAB - URINE ORDERABLES Final Result LABORATORY [facility] Acute Care Lab [address] (1st floor, no room number) [place] [address] * (ABNORMAL) UA with Microscopic reflex to Culture (09/15/2024 8:02 AM CDT) Color Urine Straw Colorless, Straw, Light Yellow, Yellow 09/15/2024 8:48 AM CDT LABORATORY Appearance Urine Clear Clear 09/16/19 8:48 AM CDT LABORATORY Glucose Urine >=1000(A) Negative mg/dL 09/15/2024 8:48 AM CDT LABORATORY Bilirubin Urine Negative Negative 8:48 AM CDT LABORATORY Ketones Urine 10(A) Negative mg/dL 09/15/2024 8:48 AM CDT LABORATORY Specific [place] Urine 1.032 1.003 - 1.035 09/15/2024 8:48 AM CDT LABORATORY Blood Urine Trace(A) Negative 09/15/2024 8:48 AM CDT [facility] pH Urine 5.5 5.0 - 7.0 09/15/2024 8:48 AM CDT [facility] Protein Albumin Urine 70(A) Negative mg/dL 09/15/2024 8:48 AM CDT [facility] Urobilinogen Urine Normal Normal mg/dL 09/15/2024 8:48 AM CDT [facility] Nitrite Urine Negative Negative 09/15/2024 8:48 AM CDT [facility] Leukocyte Esterase Urine Negative Negative 09/15/2024 8:48 AM CDT [facility] Mucus Urine Present(A) None Seen /LPF 09/15/2024 8:48 AM CDT [facility] RBC Urine <1 <=2 /HPF 09/15/2024 8:48 AM CDT [facility] WBC Urine <1 <=5 /HPF 09/15/2024 8:48 AM CDT [facility] Urine URINE SPECIMEN OBTAINED BY CLEAN CATCH PROCEDURE / Unknown Non-blood Collection / Unknown 09/15/2024 8:02 AM CDT 09/15/2024 8:09 AM CDT Narrative [facility] - 09/15/2024 8:48 AM CDT Urine Culture not indicated us Guanaco Birmingham MD LAB - URINE ORDERABLES Final Res ult [facility] Acute Care Lab [address] Lab (1st floor, no room number) [place] [address] * Beta 2 Glycoprotein 1 Antibody IgM (09/15/2024 7:23 AM CDT) Beta 2 Glycoprotein 1 Antibody IgM <2.4 <7.0 U/mL 09/18/2024 2:14 PM CDT [facility] Comment:Negative Blood BLOOD SPECIMEN / Unknown Venipuncture / Unknown 09/15/2024 7:23 AM CDT 09/15/2024 7:30 AM CDT us Kera Dasilva APRN AGRICULTURAL PILOT LAB - BLOOD ORDERABLES Final Result [facility] [address], [address] * Beta 2 Glycoprotein 1 Antibody IgG (09/15/2024 7:23 AM CDT) [facility] Beta 2 Glycoprotein 1 Antibody IgG <0.8 <7.0 U/mL 09/18/2024 2:14 PM CDT [facility]END [facility] Comment:Negative Blood BLOOD SPECIMEN / Unknown Venipuncture / Unknown 09/15/2024 7:23 AM CDT 09/15/2024 7:30 AM CDT Kera Dasilva APRN AGRICULTURAL PILOT LAB - BLOOD ORDERABLES Final Result [facility]Prot[facility]Endo [address] [facility], [address] * (ABNORMAL) Troponin T, High Sensitivity (09/15/2024 7:23 AM CDT) [facility] Troponin T, High Sensitivity 26(H) <=22 ng/L 09/15/2024 7:54 AM CDT [facility] Comment: Female Reference Range <=14 ng/L Male Reference Range <=22 ng/L Either a High Sensitivity Troponin T baseline (0 hours) value = 100 ng/L, or an increase in High Sensitivity Troponin T = 7 ng/L at 2 hours compared to 0 hours (2-0 hours), suggests myocardial injury, and urgent clinical attention is required. If the 2-0 hours increase is <7 ng/L, a High Sensitivity Troponin T result above gender-specific reference ranges warrants further evaluation. Recommendations for further evaluation include correlation with clinical decision-making tool (e.g., HEART), a 3rd High Sensitivity Troponin T test 2 hours after the 2nd (a 20% change from baseline would represent concern), admission for observation, close PCC/cardiology follow-up, or urgent outpatient provocative testing. Blood BLOOD SPECIMEN / Unknown Venipuncture / Unknown 09/15/2024 7:23 AM CDT 09/15/2024 7:30 AM CDT us Tomy Carson MD LAB - BLOOD ORDERABLES Final Result [facility] Acute Care Lab [address] Lab (1st floor, no room number) [place] [address] * Head CT w/o contrast (09/15/2024 6:34 AM CDT) Anatomical Region Laterality Modality Head, SUBRAD CT NEURO, SUBRA D CT NEURO, UMP CT NEURO, RAD CT Computed Tomography 09/15/2024 6:34 AM CDT Impressions 09/15/2024 6:54 AM CDT IMPRESSION: 1. Patchy areas of low-attenuation in the right basal ganglia and the splenium of the corpus callosum on the left. The findings are nonspecific though the basal ganglia foci are favored to be related to acute or early subacute infarcts. The lesion in the splenium could potentially represent additional ischemia or possibly reversible splenial lesion, however additional etiologies are not excluded. MRI with and without contrast suggested for further evaluation. Narrative 09/15/2024 6:54 AM CDT EXAM: CT HEAD W/O CONTRAST LOCATION: [facility] DATE: 09/15/2024 INDICATION: AMS. COMPARISON: Brain MRI 03/30/2013. TECHNIQUE: Routine CT Head without IV contrast. Multiplanar reformats. Dose reduction techniques were used. FINDINGS: INTRACRANIAL CONTENTS: No intracranial hemorrhage, extraaxial collection, or mass effect. Ovoid area of low-attenuation within the left splenium of the corpus callosum is nonspecific. Patchy areas of low-attenuation within the right caudate head and putamen. Normal parenchymal attenuation otherwise. Normal ventricles and sulci. VISUALIZED ORBITS/SINUSES/MASTOIDS: No intraorbital abnormality. No paranasal sinus mucosal disease. No middle ear or mastoid effusion. BONES/SOFT TISSUES: No acute abnormality. Procedure Note Arik Harrison MD - 09/15/2024 EXAM: CT HEAD W/O CONTRAST LOCATION: [facility] DATE: 09/15/2024 INDICATION: AMS. COMPARISON: Brain MRI 03/30/2013. TECHNIQUE: Routine CT Head without IV contrast. Multiplanar reformats.Dose reduction techniques were used. FINDINGS: INTRACRANIAL CONTENTS: No intracranial hemorrhage, extraaxial collection,or mass effect. Ovoid area of low-attenuation within the left splenium ofthe corpus callosum is nonspecific. Patchy areas of low-attenuation withinthe right caudate head and putamen. Normal parenchymal attenuation otherwise. Normal ventricles andsulci. VISUALIZED ORBITS/SINUSES/MASTOIDS: No intraorbital abnormality. Noparanasal sinus mucosal disease. No middle ear or mastoid effusion. BONES/SOFT TISSUES: No acute abnormality. IMPRESSION: 1. Patchy areas of low-attenuation in the right basal ganglia and thesplenium of the corpus callosum on the left. The findings are nonspecificthough the basal ganglia foci are favored to be related to acute or earlysubacute infarcts. The lesion in the splenium could potentially represent additional ischemia or possiblyreversible splenial lesion, however additional etiologies are notexcluded. MRI with and without contrast suggested for furtherevaluation. us Tomy Carson MD IMG CT ORDERABLES Final Result * (ABNORMAL) Lipid panel reflex to direct LDL (09/15/2024 5:35 AM CDT) Cholesterol 362(H) <200 mg/dL 09/15/2024 7:46 PM CDT [facility] Triglycerides 290(H) <150 mg/dL 09/15/2024 7:46 PM CDT [facility] Direct Measure HDL 53 >=40 mg/dL 09/15/2024 7:46 PM CDT [facility] LDL Cholesterol Calculated 251(H) <100 mg/dL 09/15/2024 7:46 PM CDT [facility] Comment:LDL calculated using the Friedewald equation. Non HDL Cholesterol 309(H) <130 mg/dL 09/15/2024 7:46 PM CDT [facility] Blood BLOOD SPECIMEN / Unknown Venipuncture / Unknown 09/15/2024 5:35 AM CDT 09/15/2024 5:54 AM CDT Narrative [facility] - 09/15/2024 7:46 PM CDT Cholesterol Desirable: < 200 mg/dL Borderline High: 200 - 239 mg/dL High: >= 240 mg/dL Triglycerides Normal: < 150 mg/dL Borderline High: 150 - 199 mg/dL High: 200-499 mg/dL Very High: >= 500 mg/dL Direct Measure HDL Female: >= 50 mg/dL Male: >= 40 mg/dL LDL Cholesterol Desirable: < 100 mg/dL Above Desirable: 100 - 129 mg/dL Borderline High: 130 - 159 mg/dL High: 160 - 189 mg/dL Very High: >= 190 mg/dL Non HDL Cholesterol Desirable: < 130 mg/dL Above Desirable: 130 - 159 mg/dL Borderline High: 160 - 189 mg/dL High: 190 - 219 mg/dL Very High: >= 220 mg/dL us Kera Dasilva APRN AGRICULTURAL PILOT LAB - BLOOD ORDERABLES Final Result LABORATORY [facility] [place] [facility] [address] [facility] [id number] * (ABNORMAL) iStat Gases (lactate) venous, POCT (09/15/2024 5:35 AM CDT) Pathologist [facility] Lactic Acid POCT 0.7 0.7 - 2.0 mmol/L 09/15/2024 5:39 AM CDT [facility] POC Bicarbonate Venous POCT 26 21 - 28 mmol/L 09/15/2024 5:39 AM CDT [facility] POC O2 Sat, Venous POCT 31(L) 70 - 75 % 09/15/2024 5:39 AM CDT [facility] POC pCO2 Venous POCT 51(H) 40 - 50 mm Hg 09/15/2024 5:39 AM CDT [facility] POC pH Venous POCT 7.31(L) 7.32 - 7.43 09/15/2024 5:39 AM CDT [facility] POC pO2 Venous POCT 22(L) 25 - 47 mm Hg 09/15/2024 5:39 AM CDT [facility] POC Blood, venous BLOOD SPECIMEN / Unknown 09/15/2024 5:35 AM CDT 09/15/2024 5:39 AM CDT us Provider Unknown LAB - BEAKER POCT Final Result [facility]AT[facility] POC [facility] Acute Care Lab [address] Lab (1st floor, no room number) [place] [address] * (ABNORMAL) Ketone Beta-Hydroxybutyrate Quantitative (09/15/2024 5:35 AM CDT) Ketone (Beta-Hydroxybuty rate) Quantitative 0.84(H) <=0.30 mmol/L 09/15/2024 6:16 AM CDT LABORATORY Blood BLOOD SPECIMEN / Unknown Venipuncture / Unknown 09/15/2024 5:35 AM CDT 09/15/2024 5:54 AM CDT us Tomy Carson MD LAB - BLOOD ORDERABLES Final Result Performing Organization Address City/[facility]/ZIP Co de Phone Number LABORATORY [facility] Lab [address] Lab (1st floor, no room number) [place] [phone] * Cardiolipin Kati IgG and IgM (09/15/2024 5:33 AM CDT) Cardiolipin Kati IgG Instrument Value <2.0 <10.0 GPL-U/mL 09/18/2024 2:14 PM CDT SPECIALTY CORE/PROT/END O Cardiolipin Antibody IgG Negative Negative 09/18/2024 2:14 PM CDT SPECIALTY CORE/PROT/END O Cardiolipin Kati IgM Instrument Value <2.0 <10.0 MPL-U/mL 09/18/2024 2:14 PM CDT UM SPECIALTY CORE/PROT/END O Cardiolipin Antibody IgM Negative Negative 09/18/2024 2:14 PM CDT SPECIALTY CORE/PROT/END O Blood BLOOD SPECIMEN / Unknown Venipuncture / Unknown 09/15/2024 5:33 AM CDT 09/15/2024 5:54 AM CDT us Kera Dasilva APRN, CNP LAB - BLOOD ORDERABLES Final Result UM SPECIALTY CORE/PROT/ENDO UM Specialty Core/Prot/Endo [address] [facility], Room [address] * (ABNORMAL) Hemoglobin A1c (09/15/2024 5:33 AM CDT) [facility] Estimated Average Glucose 381(H) <117 mg/dL 09/15/2024 3:49 PM CDT [facility] LABORATORY Hemoglobin A1C 14.9(H) <5.7 % 09/15/2024 3:49 PM CDT [facility] LABORATORY Comment: Normal <5.7% Prediabetes 5.7-6.4% Diabetes 6.5% or higher Note: Adopted from ADA consensus guidelines. Blood BLOOD SPECIMEN / Unknown Venipuncture / Unknown 09/15/2024 5:33 AM CDT 09/15/2024 5:54 AM CDT Edvin Guillen APRN AGRICULTURAL PILOT LAB - BLOOD ORDERABLE S Final Result LABORATORY [facility] [address] Lab (1st floor, no room number) [place] [address] * (ABNORMAL) Hepatic function panel (09/15/2024 5:33 AM CDT) [facility] Protein Total 6.2(L) 6.4 - 8.3 g/dL 09/15/2024 7:14 AM CDT LABORATORY Albumin 3.5 3.5 - 5.2 g/dL 09/15/2024 7:14 AM CDT LABORATORY Bilirubin Total 0.4 <=1.2 mg/dL 09/15/2024 7:14 AM CDT LABORATORY Alkaline Phosphatase 135 40 - 150 U/L 09/15/2024 7:14 AM CDT [facility] LABORATORY Comment: Female: 0-15 days 83-248 U/L 15d-1 year 122-469 U/L 1-10 years 142-335 U/L 10-13 years 129-417 U/L 13-15 years 57-254 U/L 15-17 years 50-117 U/L 17-19 years 45-87 U/L 19 years and older 35-104 U/L Male: 0-15 days 83-248 U/L 15d-1 year 122-469 U/L 1-10 years 142-335 U/L 10-13 years 129-417 U/L 13-15 years 116-468 U/L 15-17 years 82-331 U/L 17-19 years 55-149 U/L 19 years and older 40-129 U/L AST 18 0 - 45 U/L 09/15/2024 7:14 AM CDT [facility] LABORATORY ALT 16 0 - 70 U/L 09/15/2024 7:14 AM CDT [facility] LABORATORY Comment: Female All ages 0-50 U/L Male 0-20 Years 0-50 U/L 20-Unsp. Years 0-70 U/L Bilirubin Direct 0.08 0.00 - 0.30 mg/dL 09/15/2024 7:14 AM CDT [facility] LABORATORY Comment:As of 24, refer ence ranges and trending lines may vary depending on the testing location. Blood BLOOD SPECIMEN / Unknown Venipuncture / Unknown 09/15/2024 5:33 AM CDT 09/15/2024 5:54 AM CDT Narrative [facility] LABORATORY - 09/15/2024 7:14 AM CDT The generation of reference intervals for this test is currently based on binary male or female sex. If the electronic health record information indicates another gender identity or if Legal Sex is recorded as Unknown, both male and female reference intervals are provided where applicable, and should be considered according to the individual's appropriate clinical context. us Guanaco Birmingham MD LAB - BLOOD ORDERABLES Final Res ult RH LABORATORY [facility] [address] Lab (1st floor, no room number) [place] [address], [facility] * (ABNORMAL) CBC with platelets and differential (09/15/2024 5:33 AM CDT) WBC Count 11.1(H) 4.0 - 11.0 10e3/uL 09/15/2024 5:56 AM CDT [facility] LABORATORY RBC Count 4.55 3.80 - 5.90 10e6/uL 09/15/2024 5:56 AM CDT [facility] LABORATORY Comment:Reference Range: Fem iveth 3.80-5.20 10e6/uL Male 4.40-5.90 10e6u/L Hemoglobin 14.1 11.7 - 17.7 g/dL 09/15/2024 5:56 AM CDT [facility] LABORATORY Comment:Reference Range: Fem iveth 11.7-15.7 g/dL Male 13.3-17.7 g/dL Hematocrit 40.8 35.0 - 53.0 % 09/15/2024 5:56 AM CDT [facility] LABORATORY Comment:Reference Range: Fem iveth 35.0-47.0 % Male 40.0-54.0 % MCV 90 78 - 100 fL 09/15/2024 5:56 AM CDT RH LABORATORY MCH 31.0 26.5 - 33.0 pg 09/15/2024 5:56 AM CDT [facility] LABORATORY MCHC 34.6 31.5 - 36.5 g/dL 09/15/2024 5:56 AM CDT [facility] LABORATORY RDW 12.5 10.0 - 15.0 % 09/15/2024 5:56 AM CDT [facility] LABORATORY Platelet Count 287 150 - 450 10e3/uL 09/15/2024 5:56 AM CDT [facility] LABORATORY % Neutrophils 49 % 09/15/2024 5:56 AM CDT [facility] LABORATORY % Lymphocytes 33 % 09/15/2024 5:56 AM CDT [facility] LABORATORY % Monocytes 9 % 09/15/2024 5:56 AM CDT [facility] LABORATORY % Eosinophils 7 % 09/15/2024 5:56 AM CDT [facility] LABORATORY % Basophils 2 % 09/15/2024 5:56 AM CDT [facility] LABORATORY % Immature Granulocytes 1 % 09/15/2024 5:56 AM CDT RH LABORATORY NRBCs per 100 WBC 0 <1 /100 025 5:56 AM CDT RH LABORATORY Absolute Neutrophils 5.4 1.6 - 8.3 10e3/uL 09/15/2024 5:56 AM CDT [facility] LABORATORY Absolute Lymphocytes 3.7 0.8 - 5.3 10e3/uL 09/15/2024 5:56 AM CDT [facility] LABORATORY Absolute Monocytes 1.0 0.0 - 1.3 10e3/uL 09/15/2024 5:56 AM CDT [facility] LABORATORY Absolute Eosinophils 0.7 0.0 - 0.7 10e3/uL 09/15/2024 5:56 AM CDT RH LABORATORY Absolute Basophils 0.2 0.0 - 0.2 10e3/uL 09/15/2024 5:56 AM CDT RH LABORATORY Absolute Immature Granulocytes 0.1 <=0.4 10e3/uL 09/15/2024 5:56 AM CDT RH LABORATORY Absolute NRBCs 0.0 10e3/uL 09/15/2024 5:56 AM CDT RH LABORATORY Blood BLOOD SPECIMEN / Unknown Venipuncture / Unknown 09/15/2024 5:33 AM CDT 09/15/2024 5:54 AM CDT Narrative [facility] LABORATORY - 09/15/2024 5:56 AM CDT The generation of reference intervals for this test is currently based on binary male or female sex. If the electronic health record information indicates another gender identity or if Legal Sex is recorded as Unknown, both male and female reference intervals are provided where applicable, and should be considered according to the individual's appropriate clinical context. us Tomy Carson MD LAB - BLOOD ORDERABLES Final Result LABORATORY [facility] [address] [facility] Lab (1st floor, no room number) [place] [address], [facility] * (ABNORMAL) Troponin T, High Sensitivity (09/15/2024 5:33 AM CDT) [facility] Troponin T, High Sensitivity 26(H) <=22 ng/L 09/15/2024 6:15 AM CDT RH LABORATORY Comment: Female Reference Range <=14 ng/L Male Reference Range <=22 ng/L Either a High Sensitivity Troponin T baseline (0 hours) value = 100 ng/L, or an increase in High Sensitivity Troponin T = 7 ng/L at 2 hours compared to 0 hours (2-0 hours), suggests myocardial injury, and urgent clinical attention is required. If the 2-0 hours increase is <7 ng/L, a High Sensitivity Troponin T result above gender-specific reference ranges warrants further evaluation. Recommendations for further evaluation include correlation with clinical decision-making tool (e.g., HEART), a 3rd High Sensitivity Troponin T test 2 hours after the 2nd (a 20% change from baseline would represent concern), admission for observation, close PCC/cardiology follow-up, or urgent outpatient provocative testing. Blood BLOOD SPECIMEN / Unknown Venipuncture / Unknown 09/15/2024 5:33 AM CDT 09/15/2024 5:54 AM CDT Tomy Carson MD LAB - BLOOD ORDERABLES Final Result Performing Organization Address City/[facility]/ZIP Co de Phone Number [facility] Lab [address] Lab (1st floor, no room number) [place] [phone] * Ethanol Level Blood (09/15/2024 5:33 AM CDT) Ethanol Level Blood <0.01 <=0.01 g/dL 09/15/2024 6:15 AM CDT LABORATORY Blood BLOOD SPECIMEN / Unknown Venipuncture / Unknown 09/15/2024 5:33 AM CDT 09/15/2024 5:54 AM CDT Tomy Carson MD LAB - BLOOD ORDERABLES Final Result Performing Organization Address [facility] de Phone Number [facility] Lab [address] Lab (1st floor, no room number) [place] [phone] * (ABNORMAL) Basic metabolic panel (09/15/2024 5:33 AM CDT) Sodium 135 135 - 145 mmol/L 09/15/2024 6:42 AM CDT LABORATORY Potassium 4.4 3.4 - 5.3 mmol/L 09/15/2024 6:42 AM CDT LABORATORY Chloride 99 98 - 107 mmol/L 09/15/2024 6:42 AM CDT LABORATORY Carbon Dioxide (CO2) 25 22 - 29 mmol/L 09/15/2024 6:42 AM CDT LABORATORY Anion Gap 11 7 - 15 mmol/L 09/15/2024 6:42 AM CDT LABORATORY Urea Nitrogen 21.4(H) 6.0 - 20.0 mg/dL 09/15/2024 6:42 AM CDT LABORATORY Creatinine 0.81 0.51 - 1.17 mg/dL 09/15/2024 6:42 AM CDT LABORATORY Comment: Male and Female 0-2 Months 0.31-0.88 mg/dL 2-12 Months 0.16-0.39 mg/dL 1-2 Years 0.18-0.35 mg/dL 3-4 Years 0.26-0.42 mg/dL 5-6 Years 0.29-0.47 mg/dL 7-8 Years 0.34-0.53 mg/dL 9-10 Years 0.33-0.64 mg/dL 11-12 Years 0.44-0.68 mg/dL 13-14 Years 0.46-0.77 mg/dL Female 15 Years and older 0.51-0.95 mg/dL Male 15 Years and older 0.67-1.17 mg/dL GFR Estimate >90 >60 mL/min/1. 73m2 09/15/2024 6:42 AM T LABORATORY Comment: The generation of the estimated GFR is currently based on binary male or female sex. If the electronic health record information indicates another gender identity or if Legal Sex is recorded as Unknown, GFR estimates are not automatically calculated, and application of GFR equations or a direct GFR measurement should be considered according to the individual's appropriate clinical context. eGFR calculated using 2020 CKD-EPI equation. Calcium 8.6(L) 8.8 - 10.4 mg/dL 09/15/2024 6:42 AM T LABORATORY Glucose 509(HH) 70 - 99 mg/dL 09/15/2024 6:42 AM T LABORATORY Blood BLOOD SPECIMEN / Unknown Venipuncture / Unknown 09/15/2024 5:33 AM CDT 09/15/2024 5:54 AM CDT [facility] LABORATORY - 09/15/2024 6:42 AM CDT The generation of reference intervals for this test is currently based on binary male or female sex. If the electronic health record information indicates another gender identity or if Legal Sex is recorded as Unknown, both male and female reference intervals are provided where applicable, and should be considered according to the individual's appropriate clinical context. us Tomy Carson MD LAB - BLOOD ORDERABLES Final Result LABORATORY [facility] [address] Lab (1st floor, no room number) [place] [address] * EKG 12-lead, tracing only (09/15/2024 5:32 AM CDT) Systolic Blood Pressure mmHg RADIOLOGY RESULTS Diastolic Blood Pressure mmHg RADIOLOGY RESULTS Ventricular Rate 88 BPM RAD IOLOGY RESULTS Atrial Rate 88 BPM RADIOLOG Y RESULTS FL Interval 170 ms RADIOLOG Y RESULTS QRS Duration 108 ms RADIOLO GY RESULTS QT 360 ms RADIOLOGY RESULTS QTc 435 ms RADIOLOGY RESULTS P [place] 51 degrees RADIOLOGY RESULTS R AXIS 92 degrees RADIOLOGY RESULTS T [place] 62 degrees RADIOLOGY RESULTS Interpretation ECG Sinus rhythm with sinus arrhythmia Rightward axis Borderline ECG No previous ECGs available Confirmed by - EMERGENCY ROOM, PHYSICIAN ([id number]), video editor TERRY CEDEÑO ([id number]) on 09/15/2024 7:16:00 AM RADIOLOGY RESULTS 09/15/2024 5:32 AM CDT 09/15/2024 7:16 AM CDT Tomy Carson MD ECG ORDERABLES Edited Result - Final Performing Organization Address [facility]/ZIP Co de Phone Number RADIOLOGY RESULTS * (ABNORMAL) Glucose by meter (09/15/2024 5:17 AM CDT) GLUCOSE BY METER POCT 488(H) 70 - 99 mg/dL 09/15/2024 5:24 AM CDT LABORATORY POC Blood, Capillary BLOOD SPECIMEN / Unknown 09/15/2024 5:17 AM CDT 09/15/2024 5:24 AM CDT us Provider Unknown LAB - BEAKER POCT Final Result LABORATORY POC [facility] [address] Lab (1st floor, no room number) [place] [address], [facility] documented in this encounter Visit Diagnoses Diagnosis Tobacco abuse- Primary Tobacco use disorder Acute CVA (cerebrovascular accident) (H) Type 2 diabetes mellitus without complication, without long-term current use of insulin (H) Benign essential hypertension Essential hypertension, benign Stage 3a chronic kidney disease (H) ANG (obstructive sleep apnea) Obstructive sleep apnea (adult) (pediatric) Morbid obesity due to excess calories (H) Acute CVA (cerebrovascular accident) (H) documented in this encounter Admitting Diagnoses Diagnosis Acute CVA (cerebrovascular accident) (H) documented in this encounter Administered Medications Inactive Administered Medications - up to 3 most recent administrations Medication Order MAR Action Action Date Dose Rate Site aspirin (ASA) chewable tablet 81 mg 81 mg, Oral, ONCE, On Wed09/15/24 at 1155, For 1 dose $Given 09/15/2024 12:13 PM CDT 81 mg aspirin EC tablet 81 mg 81 mg, Oral, DAILY, First dose on Wed09/16/24 at 0900, DO NOT CRUSH. $Given 09/17/2024 9:10 AM CDT 81 mg $Given 09/16/2024 8:25 AM CDT 81 mg atorvastatin (LIPITOR) tablet 80 mg 80 mg, Oral, EVERY EVENING, First dose on Wed09/16/24 at 2000 $Given 09/16/2024 7:56 PM CDT 80 mg clopidogrel (PLAVIX) tablet 300 mg 300 mg, Oral, ONCE, On Wed09/15/24 at 1155, For 1 dose $Given 09/15/2024 12:13 PM CDT 300 mg clopidogrel (PLAVIX) tablet 75 mg 75 mg, Oral, DAILY, First dose on Wed09/16/24 at 0900 $Given 09/17/2024 9:10 AM CDT 75 mg $Given 09/16/2024 8:25 AM CDT 75 mg dextrose 50 % injection 25-50 mL 25-50 mL, Intravenous, EVERY 15 MIN PRN, low blood sugar, Administer over 1-5 Minutes, Starting on Wed09/15/24 at 1249, Use if have IV access, BG less than 70 mg/dL and meet dose criteria below: Dose if conscious and alert (or disorientated) and NPO = 25 mL Dose if unconscious / not alert = 50 mL Give first dose for initial blood glucose less than 70 mg/dL. If blood glucose at 15 minute recheck is less than or equal to 80 mg/dL continue to administer carbohydrate treatment every 15 minutes, as needed, based on blood glucose and assessment parameters until blood glucose level is above 80 mg/dL x 2 consecutive 15 minute checks. gadobutrol (GADAVIST) injection 10 mL 10 mL, Intravenous, ONCE, On Wed09/15/24 at 0910, For 1 dose $Given 09/15/2024 9:42 AM CDT 10 mLs glucagon injection 1 mg 1 mg, Subcutaneous, EVERY 15 MIN PRN, low blood sugar, May repeat x 1 only, Starting on Wed09/15/24 at 1249, May give SQ or IM. ONLY use glucagon IF patient has NO IV access AND is UNABLE to swallow AND blood glucose is LESS than or EQUAL to 50 mg/dL. glucose gel 15-30 g 15-30 g, Oral, EVERY 15 MIN PRN, low blood sugar, Starting on Wed09/15/24 at 1249, Give first dose for initial blood glucose less than 70 mg/dL per the dosing instructions below. If blood glucose at 15 minute rechecks is still less than or equal to 80 mg/dL, continue to administer doses per blood glucose parameters every 15 minutes, as needed, until blood glucose level is at or above 80 mg/dL x 2 consecutive 15 minute checks. Dosing Instructions: ~If patient is conscious and able to swallow and NO enteral tube For initial BG 51-69mg/dL OR 15 minute recheck BG 51- 80 mg/dL - give 15 g For BG less than or equal to 50 mg/dL - give 30 g ~ If Enteral tube For initial BG 51-69mg/dL OR 15 minute recheck BG 51- 80 mg/dL - give apple juice 120 mL (4 oz or 15 g of CHO) via enteral tube For BG less than or equal to 50 mg/dL - Give apple juice 240 mL (8 oz or 30 g of CHO) via enteral tube ~Oral gel is preferable for conscious and able to swallow patient. ~IF gel unavailable or patient refuses may provide apple juice per Enteral tube dosing instructions. Document juice on I and O flowsheet. insulin aspart (NovoLOG) injection (RAPID ACTING) 10 Units, Subcutaneous, ONCE, On Wed09/15/24 at 0645, For 1 dose $Given 09/15/2024 6:56 AM CDT 10 Units insulin aspart (NovoLOG) injection (RAPID ACTING) 1-7 Units, Subcutaneous, 3 TIMES DAILY BEFORE MEALS, First dose on Wed09/15/24 at 1330, Correction Scale - MEDIUM INSULIN RESISTANCE DOSING Do Not give Correction Insulin if Pre-Meal BG less than 140. For Pre-Meal BG 140 - 189 give 1 unit. For Pre-Meal BG 190 - 239 give 2 units. For Pre-Meal BG 240 - 289 give 3 units. For Pre-Meal BG 290 - 339 give 4 units. For Pre-Meal BG 340- 389 give 5 units. For Pre-Meal BG 390-439 give 6 units For Pre-Meal BG greater than or equal to 440 give 7 units. If patient is NOT eating a meal: Blood glucose should still be checked and correction (sliding scale) insulin to be administered within 30 minutes if order parameters are met. If patient is eating a meal: To be given with prandial insulin if ordered, and based on pre-meal blood glucose. Administering insulin within 5 minutes of the start of the meal is ideal. Administer insulin no more than 30 minutes after the start of the meal, unless directed otherwise by provider. Notify provider if glucose greater than or equal to 350 mg/dL after administration of correction dose. $Given 09/17/2024 12:44 PM CDT 3 Units $Given 09/17/2024 9:46 AM CDT 2 Units $Given 09/16/2024 5:52 PM CDT 3 Units insulin aspart (NovoLOG) injection (RAPID ACTING) 1-5 Units, Subcutaneous, AT BEDTIME, First dose on Wed09/15/24 at 2200, MEDIUM INSULIN RESISTANCE DOSING Do Not give Bedtime Correction Insulin if BG less than 200. For BG 200 - 249 give 1 units. For BG 250 - 299 give 2 units. For BG 300 - 349 give 3 units. For BG 350 -399 give 4 units. For BG greater than or equal to 400 give 5 units. Notify provider if glucose greater than or equal to 350 mg/dL after administration of correction dose. $Given 09/16/2024 9:32 PM CDT 2 Units $Given 09/15/2024 10:16 PM CDT 2 Units insulin glargine (LANTUS PEN) injection 10 Units 10 Units, Subcutaneous, ONCE, On Wed09/16/24 at 1100, For 1 dose $Given 09/16/2024 11:44 AM CDT 10 Units insulin glargine (LANTUS PEN) injection 15 Units 15 Units, Subcutaneous, ONCE, On Wed09/15/24 at 1400, For 1 dose $Given 09/15/2024 3:11 PM CDT 15 Units insulin glargine (LANTUS PEN) injection 25 Units 25 Units, Subcutaneous, AT BEDTIME, First dose on Wed09/16/24 at 2200 $Given 09/16/2024 9:32 PM CDT 25 Units iopamidol (ISOVUE-370) solution 500 mL 500 mL, Intravenous, ONCE, On Wed09/15/24 at 1405, For 1 dose $Given 09/15/2024 2:03 PM CDT 67 mLs iopamidol (ISOVUE-370) solution 500 mL 500 mL, Intravenous, ONCE, On Wed09/15/24 at 2200, For 1 dose $Given 09/15/2024 9:49 PM CDT 100 mLs lactated ringers BOLUS 1,000 mL Intravenous, 1,000 mL, ONCE, at 1,000 mL/hr, Administer over 1 Hours, On Wed09/15/24 at 0530, For 1 dose $New Bag 09/15/2024 5:42 AM CDT 1,000 mLs 1000 mL/hr lactated ringers BOLUS 1,000 mL Intravenous, 1,000 mL, ONCE, at 1,000 mL/hr, Administer over 1 Hours, On Wed09/15/24 at 0540, For 1 dose $New Bag 09/15/2024 5:42 AM CDT 1,000 mLs 1000 mL/hr ondansetron (ZOFRAN ODT) ODT tab 4 mg 4 mg, Oral, EVERY 6 HOURS PRN, nausea/vomiting - 1st line, Starting on Wed09/15/24 at 1249, This is Step 1 of nausea and vomiting management. If nausea not resolved in 15 minutes, go to Step 2 prochlorperazine (COMPAZINE). With dry hands, peel back foil backing and gently remove tablet. Do not push oral disintegrating tablet through foil backing. Administer immediately on tongue and oral disintegrating tablet dissolves in seconds, then swallow with saliva. Liquid not required. ondansetron (ZOFRAN) injection 4 mg 4 mg, Intravenous, EVERY 6 HOURS PRN, nausea/vomiting - 1st line, Administer over 2-5 Minutes, Starting on Wed09/15/24 at 1249, Give IF patient unable to tolerate oral medication. This is Step 1 of nausea and vomiting management. If nausea not resolved in 15 minutes, go to Step 2 prochlorperazine (COMPAZINE). prochlorperazine (COMPAZINE) injection 10 mg 10 mg, Intravenous, EVERY 6 HOURS PRN, nausea/vomiting - 2nd line, Administer over 1-2 Minutes, Starting on Wed09/15/24 at 1249, IF patient unable to tolerate oral medication. This is Step 2 of nausea and vomiting management. Give if nausea not resolved 15 minutes after giving ondansetron (ZOFRAN). prochlorperazine (COMPAZINE) tablet 10 mg 10 mg, Oral, EVERY 6 HOURS PRN, nausea/vomiting - 2nd line, Starting on Wed09/15/24 at 1249, This is Step 2 of nausea and vomiting management. Give if nausea not resolved 15 minutes after giving ondansetron (ZOFRAN). senna-docusate (SENOKOT-S/PERICOLACE) 8.6-50 MG per tablet 1 tablet 1 tablet, Oral, 2 TIMES DAILY PRN, constipation, Starting on Wed09/15/24 at 1249, If no bowel movement in 24 hours, increase to 2 tablets by mouth. IF more than 1 constipation PRN medication is ordered, administer step-aiken as indicated, moving to the next step ONLY if prior step ineffective. Step 1: senna-docusate (SENOKOT-S; PERICOLACE) OR bisacodyl (DULCOLAX) EC tablet Step 2: polyethylene glycol (MIRALAX/GLYCOLAX) Step 3: bisacodyl (DULCOLAX) suppository Step 4: enema Hold for loose stools. senna-docusate (SENOKOT-S/PERICOLACE) 8.6-50 MG per tablet 2 tablet 2 tablet, Oral, 2 TIMES DAILY PRN, constipation, Starting on Wed09/15/24 at 1249, IF more than 1 constipation PRN medication is ordered, administer step-aiken as indicated, moving to the next step ONLY if prior step ineffective. Step 1: senna-docusate (SENOKOT-S; PERICOLACE) OR bisacodyl (DULCOLAX) EC tablet Step 2: polyethylene glycol (MIRALAX/GLYCOLAX) Step 3: bisacodyl (DULCOLAX) suppository Step 4: enema Hold for loose stools. sodium chloride (PF) 0.9% PF flush 3 mL 3 mL, Intracatheter, EVERY 8 HOURS SCHEDULED, First dose on Wed09/15/24 at 1400, to lock peripheral IV dormant line $Given 09/16/2024 8:27 AM CDT 3 mLs sodium chloride (PF) 0.9% PF flush 3 mL 3 mL, Intracatheter, EVERY 1 MIN PRN, line flush, other, to ensure patency or to lock dormant line, Starting on Wed09/15/24 at 1249 $Given 09/16/2024 1:16 PM CDT 3 mLs sodium chloride (PF) 0.9% PF flush 60 mL 60 mL, Intravenous, ONCE, On Wed09/15/24 at 0910, For 1 dose $Given 09/15/2024 9:42 AM CDT 100 mLs sodium chloride 0.9 % bag for CT scan flush Intravenous, 100 mL, ONCE, On Wed09/15/24 at 1405, For 1 dose, This entry is for use by Radiology to intermittently used as a flush in patients receiving a CT scan. $Given 09/15/2024 2:03 PM CDT 100 mLs sodium chloride 0.9 % bag for CT scan flush Intravenous, 100 mL, ONCE, On Wed09/15/24 at 2200, For 1 dose, This entry is for use by Radiology to intermittently used as a flush in patients receiving a CT scan. $Given 09/15/2024 9:49 PM CDT 65 mLs sodium chloride 0.9 % infusion at 125 mL/hr, Intravenous, CONTINUOUS, Starting on Wed09/15/24 at 0900, Until Wed09/17/24 at 1549 $New Bag 09/17/2024 7:28 AM CDT 125 mL/hr $New Bag 09/16/2024 11:18 PM CDT 125 mL/hr Rate/Dose Verify 09/16/2024 5:06 PM CDT 125 mL/ hr sodium chloride bacteriostatic 0.9 % flush 30 mL 30 mL, Intravenous, ONCE, On Wed09/15/24 at 1325, For 1 dose $Given 09/15/2024 1:25 PM CDT 30 mLs documented in this encounter Active and Recently Administered Medications Times are shown in CDT. Scheduled Medication Order 09/15/2024 09/16/2024 09/17/2024 aspirin (ASA) chewable tablet 81 mg (COMPLETED) 81 mg, Oral, ONCE, On Wed09/15/24 at 1155, For 1 dose 1213 ($Given - Provider: Maria Guadalupe Sutton RN) aspirin EC tablet 81 mg 81 mg, Oral, DAILY, First dose on Wed09/16/24 at 0900, DO NOT CRUSH. 0825 ($Given - Provider: Miah Gordon RN) 0910 ($Given - Provider: Lali Duran LPN) atorvastatin (LIPITOR) tablet 80 mg 80 mg, Oral, EVERY EVENING, First dose on Wed09/16/24 at 2000 1956 ($Given - Provider: Esther Roca RN) clopidogrel (PLAVIX) tablet 300 mg (COMPLETED) 300 mg, Oral, ONCE, On Wed09/15/24 at 1155, For 1 dose 1213 ($Given - Provider: Maria Guadalupe Sutton RN) clopidogrel (PLAVIX) tablet 75 mg 75 mg, Oral, DAILY, First dose on Wed09/16/24 at 0900 0825 ($Given - Provider: Miah Gordon RN) 0910 ($Given - Provider: Lali Duran LPN) gadobutrol (GADAVIST) injection 10 mL (COMPLETED) 10 mL, Intravenous, ONCE, On Wed09/15/24 at 0910, For 1 dose 0942 ($Given - Provider: MALA Carmona) insulin aspart (NovoLOG) injection (RAPID ACTING) (COMPLETED) 10 Units, Subcutaneous, ONCE, On Wed09/15/24 at 0645, For 1 dose 0656 ($Given - Provider: Shiela Boss RN) insulin aspart (NovoLOG) injection (RAPID ACTING) 1-7 Units, Subcutaneous, 3 TIMES DAILY BEFORE MEALS, First dose on Wed09/15/24 at 1330, Correction Scale - MEDIUM INSULIN RESISTANCE DOSING Do Not give Correction Insulin if Pre-Meal BG less than 140. For Pre-Meal BG 140 - 189 give 1 unit. For Pre-Meal BG 190 - 239 give 2 units. For Pre-Meal BG 240 - 289 give 3 units. For Pre-Meal BG 290 - 339 give 4 units. For Pre-Meal BG 340- 389 give 5 units. For Pre-Meal BG 390-439 give 6 units For Pre-Meal BG greater than or equal to 440 give 7 units. If patient is NOT eating a meal: Blood glucose should still be checked and correction (sliding scale) insulin to be administered within 30 minutes if order parameters are met. If patient is eating a meal: To be given with prandial insulin if ordered, and based on pre-meal blood glucose. Administering insulin within 5 minutes of the start of the meal is ideal. Administer insulin no more than 30 minutes after the start of the meal, unless directed otherwise by provider. Notify provider if glucose greater than or equal to 350 mg/dL after administration of correction dose. 1458 (Canceled Entry - Provider: Gi Trimble RN)1744 ($Given - Provider: Charlene Betancourt RN - Comment: BG 265) 0825 ($Given - Provider: Miah Gordon RN - Comment: [id number])1144 ($Given - Provider: Miah Gordon RN - Comment: [id number])1752 ($Given - Provider: Miah Gordon RN - Comment: bg-260) 0946 ($Given - Provider: Lali Duran LPN - Comment: bg 225)1244 ($Given - Provider: Jenifer Muñoz RN - Comment: bg 250) insulin aspart (NovoLOG) injection (RAPID ACTING) 1-5 Units, Subcutaneous, AT BEDTIME, First dose on Wed09/15/24 at 2200, MEDIUM INSULIN RESISTANCE DOSING Do Not give Bedtime Correction Insulin if BG less than 200. For BG 200 - 249 give 1 units. For BG 250 - 299 give 2 units. For BG 300 - 349 give 3 units. For BG 350 -399 give 4 units. For BG greater than or equal to 400 give 5 units. Notify provider if glucose greater than or equal to 350 mg/dL after administration of correction dose. 2216 ($Given - Provider: Charlene Betancourt RN - Comment: BG 286) 2132 ($Given - Provider: Esther Roca RN) insulin glargine (LANTUS PEN) injection 10 Units (COMPLETED) 10 Units, Subcutaneous, ONCE, On Wed09/16/24 at 1100, For 1 dose 1144 ($Given - Provider: Miah Gordon RN) insulin glargine (LANTUS PEN) injection 15 Units (COMPLETED) 15 Units, Subcutaneous, ONCE, On Wed09/15/24 at 1400, For 1 dose 1511 ($Given - Provider: Gi Trimble RN) insulin glargine (LANTUS PEN) injection 25 Units 25 Units, Subcutaneous, AT BEDTIME, First dose on Wed09/16/24 at 2200 2132 ($Given - Provider: Esther Roca RN) iopamidol (ISOVUE-370) solution 500 mL (COMPLETED) 500 mL, Intravenous, ONCE, On Wed09/15/24 at 1405, For 1 dose 1403 ($Given - Provider: Elan Diana ARRT) iopamidol (ISOVUE-370) solution 500 mL (COMPLETED) 500 mL, Intravenous, ONCE, On Wed09/15/24 at 2200, For 1 dose 2149 ($Given - Provider: MALA Cabrales) lactated ringers BOLUS 1,000 mL (COMPLETED) Intravenous, 1,000 mL, ONCE, at 1,000 mL/hr, Administer over 1 Hours, On Wed09/15/24 at 0530, For 1 dose 0542 ($New Bag - Provider: Shiela Boss RN)0808 (Stopped - Provider: Marlena Champagne RN) lactated ringers BOLUS 1,000 mL (COMPLETED) Intravenous, 1,000 mL, ONCE, at 1,000 mL/hr, Administer over 1 Hours, On Wed09/15/24 at 0540, For 1 dose 0542 ($New Bag - Provider: Shiela Boss RN)0808 (Stopped - Provider: Marlena Champagne RN) sodium chloride (PF) 0.9% PF flush 3 mL 3 mL, Intracatheter, EVERY 8 HOURS SCHEDULED, First dose on Wed09/15/24 at 1400, to lock peripheral IV dormant line 1459 (Not Given - Provider: Gi Trimble RN - Reason: IV Infusing)2133 (Not Given - Provider: Charlene Betancourt RN - Reason: IV Infusing) 0009 (Not Given - Provider: Zaida Read, TETO - Reason: IV Infusing)0827 ($Given - Provider: Miah Gordon, TETO)1902 (Canceled Entry - Provider: Miah Gordon RN - Comment: given)2342 (Not Given - Provider: Zaida Read RN - Reason: IV Infusing) 0911 (Not Given - Provider: Lali Duran LPN - Reason: IV Infusing) sodium chloride (PF) 0.9% PF flush 60 mL (COMPLETED) 60 mL, Intravenous, ONCE, On Wed09/15/24 at 0910, For 1 dose 0942 ($Given - [facility] sodium chloride 0.9 % bag for CT scan flush (COMPLETED) Intravenous, 100 mL, ONCE, On Wed09/15/24 at 1405, For 1 dose, This entry is for use by Radiology to intermittently used as a flush in patients receiving a CT scan. 1403 ($Given - Provider: Elan Diana ARRT) sodium chloride 0.9 % bag for CT scan flush (COMPLETED) Intravenous, 100 mL, ONCE, On Wed09/15/24 at 2200, For 1 dose, This entry is for use by Radiology to intermittently used as a flush in patients receiving a CT scan. 214 ($Given - Provider: Juan Gunter ARRT) sodium chloride bacteriostatic 0.9 % flush 30 mL (COMPLETED) 30 mL, Intravenous, ONCE, On Wed09/15/24 at 1325, For 1 dose 1325 ($Given - Provider: Kristina Mueller) Continuous Medication Order 09/15/2024 09/16/2024 09/17/2024 sodium chloride 0.9 % infusion at 125 mL/hr, Intravenous, CONTINUOUS, Starting on Wed09/15/24 at 0900, Until Wed09/17/24 at 1549 1028 ($New Bag - Provider: Maria Guadalupe Sutton RN)2036 ($New Bag - Provider: Charlene Betancourt RN) 0007 (Rate/Dose Verify - Provider: Zaida Read RN)0447 ($New Bag - Provider: Zaiad Read RN)0754 (Rate/Dose Verify - Provider: Miah Gordon, RN)1315 ($New Bag - Provider: Miah Gordon RN)1706 (Rate/Dose Verify - Provider: Miah Gordon, RN)2318 ($New Bag - Provider: Zaida Read RN) 0728 ($New Bag - Provider: Zaida Read RN)1207 (Stopped - Provider: Jenifer Muñoz RN) PRN Medication Order 09/15/2024 09/16/2024 09/17/2024 benzocaine-menthol (CHLORASEPTIC) 6-10 MG lozenge 1 lozenge 1 lozenge, Buccal, EVERY 1 HOUR PRN, sore throat, without fever, Starting on Wed09/15/24 at 1249 calcium carbonate (TUMS) chewable tablet 1,000 mg 1,000 mg, Oral, 4 TIMES DAILY PRN, heartburn, Starting on Wed09/15/24 at 1249 dextrose 50 % injection 25-50 mL(Linked Group 1) 25-50 mL, Intravenous, EVERY 15 MIN PRN, low blood sugar, Administer over 1-5 Minutes, Starting on Wed09/15/24 at 1249, Use if have IV access, BG less than 70 mg/dL and meet dose criteria below: Dose if conscious and alert (or disorientated) and NPO = 25 mL Dose if unconscious / not alert = 50 mL Give first dose for initial blood glucose less than 70 mg/dL. If blood glucose at 15 minute recheck is less than or equal to 80 mg/dL continue to administer carbohydrate treatment every 15 minutes, as needed, based on blood glucose and assessment parameters until blood glucose level is above 80 mg/dL x 2 consecutive 15 minute checks. glucagon injection 1 mg(Linked Group 1) 1 mg, Subcutaneous, EVERY 15 MIN PRN, low blood sugar, May repeat x 1 only, Starting on Wed09/15/24 at 1249, May give SQ or IM. ONLY use glucagon IF patient has NO IV access AND is UNABLE to swallow AND blood glucose is LESS than or EQUAL to 50 mg/dL. glucose gel 15-30 g(Linked Group 1) 15-30 g, Oral, EVERY 15 MIN PRN, low blood sugar, Starting on Wed09/15/24 at 1249, Give first dose for initial blood glucose less than 70 mg/dL per the dosing instructions below. If blood glucose at 15 minute rechecks is still less than or equal to 80 mg/dL, continue to administer doses per blood glucose parameters every 15 minutes, as needed, until blood glucose level is at or above 80 mg/dL x 2 consecutive 15 minute checks. Dosing Instructions: ~If patient is conscious and able to swallow and NO enteral tube For initial BG 51-69mg/dL OR 15 minute recheck BG 51- 80 mg/dL - give 15 g For BG less than or equal to 50 mg/dL - give 30 g ~ If Enteral tube For initial BG 51-69mg/dL OR 15 minute recheck BG 51- 80 mg/dL - give apple juice 120 mL (4 oz or 15 g of CHO) via enteral tube For BG less than or equal to 50 mg/dL - Give apple juice 240 mL (8 oz or 30 g of CHO) via enteral tube ~Oral gel is preferable for conscious and able to swallow patient. ~IF gel unavailable or patient refuses may provide apple juice per Enteral tube dosing instructions. Document juice on I and O flowsheet. lidocaine (LMX4) cream Topical, EVERY 1 HOUR PRN, pain, with VAD insertion, Starting on Wed09/15/24 at 1249, Apply at least 30 minutes prior to VAD insertion in divided doses as needed for size of site for insertion. MAX Dose: 2.5 g ( of 5 g tube) Do NOT give if patient has a history of allergy to any local anesthetic or any ree product. Do NOT use both lidocaine intradermal/subcutaneous injection and the lidocaine cream on the same site. lidocaine 1 % 0.1-1 mL 0.1-1 mL, Other, EVERY 1 HOUR PRN, mild pain with VAD insertion, Starting on Wed09/15/24 at 1249, MAX dose 1 mL subcutaneous OR intradermal along the side of the vein in divided doses as needed for VAD insertion. Do NOT give if patient has a history of allergy to any local anesthetic or any ree product. Do NOT use both lidocaine intradermal/subcutaneous injection and the lidocaine cream on the same site. ondansetron (ZOFRAN ODT) ODT tab 4 mg(Linked Group 2) 4 mg, Oral, EVERY 6 HOURS PRN, nausea/vomiting - 1st line, Starting on Wed09/15/24 at 1249, This is Step 1 of nausea and vomiting management. If nausea not resolved in 15 minutes, go to Step 2 prochlorperazine (COMPAZINE). With dry hands, peel back foil backing and gently remove tablet. Do not push oral disintegrating tablet through foil backing. Administer immediately on tongue and oral disintegrating tablet dissolves in seconds, then swallow with saliva. Liquid not required. ondansetron (ZOFRAN) injection 4 mg(Linked Group 2) 4 mg, Intravenous, EVERY 6 HOURS PRN, nausea/vomiting - 1st line, Administer over 2-5 Minutes, Starting on Wed09/15/24 at 1249, Give IF patient unable to tolerate oral medication. This is Step 1 of nausea and vomiting management. If nausea not resolved in 15 minutes, go to Step 2 prochlorperazine (COMPAZINE). prochlorperazine (COMPAZINE) injection 10 mg(Linked Group 3) 10 mg, Intravenous, EVERY 6 HOURS PRN, nausea/vomiting - 2nd line, Administer over 1-2 Minutes, Starting on Wed09/15/24 at 1249, IF patient unable to tolerate oral medication. This is Step 2 of nausea and vomiting management. Give if nausea not resolved 15 minutes after giving ondansetron (ZOFRAN). prochlorperazine (COMPAZINE) tablet 10 mg(Linked Group 3) 10 mg, Oral, EVERY 6 HOURS PRN, nausea/vomiting - 2nd line, Starting on Wed09/15/24 at 1249, This is Step 2 of nausea and vomiting management. Give if nausea not resolved 15 minutes after giving ondansetron (ZOFRAN). senna-docusate (SENOKOT-S/PERICOLACE) 8.6-50 MG per tablet 1 tablet(Linked Group 4) 1 tablet, Oral, 2 TIMES DAILY PRN, constipation, Starting on Wed09/15/24 at 1249, If no bowel movement in 24 hours, increase to 2 tablets by mouth. IF more than 1 constipation PRN medication is ordered, administer step-aiken as indicated, moving to the next step ONLY if prior step ineffective. Step 1: senna-docusate (SENOKOT-S; PERICOLACE) OR bisacodyl (DULCOLAX) EC tablet Step 2: polyethylene glycol (MIRALAX/GLYCOLAX) Step 3: bisacodyl (DULCOLAX) suppository Step 4: enema Hold for loose stools. senna-docusate (SENOKOT-S/PERICOLACE) 8.6-50 MG per tablet 2 tablet(Linked Group 4) 2 tablet, Oral, 2 TIMES DAILY PRN, constipation, Starting on Wed09/15/24 at 1249, IF more than 1 constipation PRN medication is ordered, administer step-aiken as indicated, moving to the next step ONLY if prior step ineffective. Step 1: senna-docusate (SENOKOT-S; PERICOLACE) OR bisacodyl (DULCOLAX) EC tablet Step 2: polyethylene glycol (MIRALAX/GLYCOLAX) Step 3: bisacodyl (DULCOLAX) suppository Step 4: enema Hold for loose stools. sodium chloride (PF) 0.9% PF flush 3 mL 3 mL, Intracatheter, EVERY 1 MIN PRN, line flush, other, to ensure patency or to lock dormant line, Starting on Wed09/15/24 at 1249 1316 ($Given - Provider: Miah Gordon RN) Linked Groups Order Group 1: glucose gel 15-30 gJump to med 15-30 g, Oral, EVERY 15 MIN PRN, low blood sugar, Starting on Wed09/15/24 at 1249, Give first dose for initial blood glucose less than 70 mg/dL per the dosing instructions below. If blood glucose at 15 minute rechecks is still less than or equal to 80 mg/dL, continue to administer doses per blood glucose parameters every 15 minutes, as needed, until blood glucose level is at or above 80 mg/dL x 2 consecutive 15 minute checks. Dosing Instructions: ~If patient is conscious and able to swallow and NO enteral tube For initial BG 51-69mg/dL OR 15 minute recheck BG 51- 80 mg/dL - give 15 g For BG less than or equal to 50 mg/dL - give 30 g ~ If Enteral tube For initial BG 51-69mg/dL OR 15 minute recheck BG 51- 80 mg/dL - give apple juice 120 mL (4 oz or 15 g of CHO) via enteral tube For BG less than or equal to 50 mg/dL - Give apple juice 240 mL (8 oz or 30 g of CHO) via enteral tube ~Oral gel is preferable for conscious and able to swallow patient. ~IF gel unavailable or patient refuses may provide apple juice per Enteral tube dosing instructions. Document juice on I and O flowsheet. Or dextrose 50 % injection 25-50 mLJump to med 25-50 mL, Intravenous, EVERY 15 MIN PRN, low blood sugar, Administer over 1-5 Minutes, Starting on Wed09/15/24 at 1249, Use if have IV access, BG less than 70 mg/dL and meet dose criteria below: Dose if conscious and alert (or disorientated) and NPO = 25 mL Dose if unconscious / not alert = 50 mL Give first dose for initial blood glucose less than 70 mg/dL. If blood glucose at 15 minute recheck is less than or equal to 80 mg/dL continue to administer carbohydrate treatment every 15 minutes, as needed, based on blood glucose and assessment parameters until blood glucose level is above 80 mg/dL x 2 consecutive 15 minute checks. Or glucagon injection 1 mgJump to med 1 mg, Subcutaneous, EVERY 15 MIN PRN, low blood sugar, May repeat x 1 only, Starting on Wed09/15/24 at 1249, May give SQ or IM. ONLY use glucagon IF patient has NO IV access AND is UNABLE to swallow AND blood glucose is LESS than or EQUAL to 50 mg/dL. Group 2: ondansetron (ZOFRAN ODT) ODT tab 4 mgJump to med 4 mg, Oral, EVERY 6 HOURS PRN, nausea/vomiting - 1st line, Starting on Wed09/15/24 at 1249, This is Step 1 of nausea and vomiting management. If nausea not resolved in 15 minutes, go to Step 2 prochlorperazine (COMPAZINE). With dry hands, peel back foil backing and gently remove tablet. Do not push oral disintegrating tablet through foil backing. Administer immediately on tongue and oral disintegrating tablet dissolves in seconds, then swallow with saliva. Liquid not required. Or ondansetron (ZOFRAN) injection 4 mgJump to med 4 mg, Intravenous, EVERY 6 HOURS PRN, nausea/vomiting - 1st line, Administer over 2-5 Minutes, Starting on Wed09/15/24 at 1249, Give IF patient unable to tolerate oral medication. This is Step 1 of nausea and vomiting management. If nausea not resolved in 15 minutes, go to Step 2 prochlorperazine (COMPAZINE). Group 3: prochlorperazine (COMPAZINE) injection 10 mgJump to med 10 mg, Intravenous, EVERY 6 HOURS PRN, nausea/vomiting - 2nd line, Administer over 1-2 Minutes, Starting on Wed09/15/24 at 1249, IF patient unable to tolerate oral medication. This is Step 2 of nausea and vomiting management. Give if nausea not resolved 15 minutes after giving ondansetron (ZOFRAN). Or prochlorperazine (COMPAZINE) tablet 10 mgJump to med 10 mg, Oral, EVERY 6 HOURS PRN, nausea/vomiting - 2nd line, Starting on Wed09/15/24 at 1249, This is Step 2 of nausea and vomiting management. Give if nausea not resolved 15 minutes after giving ondansetron (ZOFRAN). Group 4: senna-docusate (SENOKOT-S/PERICOLACE) 8.6-50 MG per tablet 1 tabletJump to med 1 tablet, Oral, 2 TIMES DAILY PRN, constipation, Starting on Wed09/15/24 at 1249, If no bowel movement in 24 hours, increase to 2 tablets by mouth. IF more than 1 constipation PRN medication is ordered, administer step-aiken as indicated, moving to the next step ONLY if prior step ineffective. Step 1: senna-docusate (SENOKOT-S; PERICOLACE) OR bisacodyl (DULCOLAX) EC tablet Step 2: polyethylene glycol (MIRALAX/GLYCOLAX) Step 3: bisacodyl (DULCOLAX) suppository Step 4: enema Hold for loose stools. Or senna-docusate (SENOKOT-S/PERICOLACE) 8.6-50 MG per tablet 2 tabletJump to med 2 tablet, Oral, 2 TIMES DAILY PRN, constipation, Starting on Wed09/15/24 at 1249, IF more than 1 constipation PRN medication is ordered, administer step-aiken as indicated, moving to the next step ONLY if prior step ineffective. Step 1: senna-docusate (SENOKOT-S; PERICOLACE) OR bisacodyl (DULCOLAX) EC tablet Step 2: polyethylene glycol (MIRALAX/GLYCOLAX) Step 3: bisacodyl (DULCOLAX) suppository Step 4: enema Hold for loose stools. documented in this encounter Care Teams Sap Business Objects Developer Relationship Specialty Start Date End Date No Ref-Primary, Physician PCP - General 09/15/24 Trish Woodard PA-C Physician Shake Feeder Physician Shake Feeder 02/03/13 Emerson Dowd MD [address] [place] [address] Assigned PCP 09/20/21 documented as of this encounter
--- OUTSIDE RECORDS SUMMARY | 2024-09-19 00:45 | XMS_ITS | Encounter Summary ---
Author Organization [place] Address [address] [facility] [place] [address] Care Team Providers Care Partner Management Consultant Name Role Phone Trish Woodard PA-C Unavailable [phone] Emerson Dowd MD Unavailable No Ref-Primary, Physician Primary Care Provider Encounter Details Date Type Department Care Team (Latest Contact Info) Description 09/15/2024 Travel Social History Tobacco Use Types Packs/Day Years Used Date Smoking Tobacco: Every Day Cigarettes Smokeless Tobacco: Never Alcohol Use Standard Drinks/Week Comments Not Currently 0 (1 standard drink = 0.6 oz pur e alcohol) 1 drink weekly Adolescent Education Answer Date Record ed Getting School Help Needed Not on file 12/11 Comments No Sex and Gender Information Value Date Recorded Sex Assigned at Not on file 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
--- OUTSIDE RECORDS SUMMARY | 2024-09-19 00:45 | XMS_ITS | Encounter Summary ---
Author Organization [place] Address [facility] 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
--- OUTSIDE RECORDS SUMMARY | 2024-09-19 00:45 | XMS_ITS | Encounter Summary ---
Author Organization [place] Address [address] [facility] [place] [address] Care Team Providers Care Technology Training Associate Name Role Phone Trish Woodard PA-C Unavailable [phone] Emerson Dowd MD Unavailable [phone] No Ref-Primary, Physician Primary Care Provider Encounter Details Date Type Department Care Team (Late st Contact Info) Description 09/15/2024 Orders Only (auto-released) [place] [phone] [facility] [address] [place] [phone] Monique Turner APRN [facility] [address] [place] [address] [phone] Acute CVA (cerebrovascular accident) (H) Social History Tobacco Use Types Packs/Day Years [...] on file 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
--- OUTSIDE RECORDS SUMMARY | 2024-09-19 00:45 | XMS_ITS | Encounter Summary ---
Author Organization [place] Address [address] [place] [address] Care Team Providers Care Borematic Operator Name Role Phone Trish Woodard PA-C Unavailable [phone] Emerson Dowd MD Unavailable [phone] No Ref-Primary, Physician Primary Care Provider Reason for Referral * Genomics (Routine) - Pending Review Specialty Diagnoses / Procedures Referred By Contac t Referred To Contact Diagnoses Morbid obesity due to excess calories (H) Procedures Factor 2 and 5 mutation analysis Monique Turner APRN CNP [facility] [address] [place] [phone] Phone: tel: fax: Referral ID Status Reason Start Date Expiration Date V isits Requested Visits Authorized [id number] Pending Review 09/18/2024 09/18/2025 1 1 Encounter Details Date Type Department Care Team (Late st Contact Info) Description 09/18/2024 Orders Only [facility] [address] [place] [phone] Monique Turenr APRN CNP [facility] [address] [place] [address] [phone] Morbid obesity due to excess calories (H) (Primary Dx) Social History Tobacco Use Types Packs/Day Years [...] on file 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 Gender Identity Not on file Sexual Orientation Not on file documented as of this encounter Plan of Treatment Scheduled Orders Name Type Priority Associated Diagnoses Orde r Schedule Factor 2 and 5 mutation analysis Molecular Lab Routine Morbid obesity due to excess calories (H) Expected: 09/18/2024 (Approximate), Expires: 09/18/2025 documented as of this encounter Visit Diagnoses Diagnosis Morbid obesity due to excess calories (H)- Primary documented in this encounter Care Teams Borematic Operator Relationship Specialty Start Date End Date No Ref-Primary, Physician PCP - General 09/15/24 Trish Woodard PA-C Physician Campus Manager Physician Campus Manager 02/03/13 Emerson Dowd MD [address] [place] [address] Assigned PCP 09/20/21 documented as of this encounter
--- OUTSIDE RECORDS SUMMARY | 2024-09-19 00:46 | XMS_ITS | Clinical Summary ---
Author Organization [place] Address [address] [place] [address] Care Team Providers Care Pipelines Supervisor Name Role Phone Trish Woodard PA-C Unavailable [phone] Emerson Dowd MD Unavailable [phone] No Ref-Primary, Physician Primary Care Provider Allergies Active Allergy Reactions Criticality Noted Date Comments Bees Swelling 02/03/2013 Liraglutide Nausea and Vomiting 02/02/2022 Lisinopril Other (See Comments) 02/02/2022 ED Penicillins Unknown 02/03/2013 Medications blood glucose monitoring (NO BRAND SPECIFIED) meter device kitIndications:U ncontrolled type 2 diabetes mellitus with hyperglycemia (H) Dispense option covered by insurance. Test blood sugar 4 times daily. Uncontrolled DM2. 1 kit 09/09/19 Active blood glucose (NO BRAND SPECIFIED) test stripIndications :Uncontrolled type 2 diabetes mellitus with hyperglycemia (H) Dispense option covered by insurance. Test blood sugar 4 times daily. Uncontrolled DM2. 100 strip 09/09/19 Active blood glucose (NO BRAND SPECIFIED) lancets standardIndicati ons:Uncontrolled type 2 diabetes mellitus with hyperglycemia (H) Dispense option covered by insurance. Test blood sugar 4 times daily. Uncontrolled DM2. 100 each 09/09/19 Active aspirin (ASA) 81 MG EC tabletIndication s:Acute CVA (cerebrovascular accident) (H),Type 2 diabetes mellitus without complication, without long-term current use of insulin (H),Benign essential hypertension,Sta ge 3a chronic kidney disease (H) Take 1 tablet (81 mg) by mouth daily. 30 tablet 1 09/18/19 25 Active atorvastatin (LIPITOR) 80 MG tabletIndication s:Acute CVA (cerebrovascular accident) (H),Type 2 diabetes mellitus without complication, without long-term current use of insulin (H),Benign essential hypertension Take 1 tablet (80 mg) by mouth every evening. 30 tablet 1 09/18/19 25 Active clopidogrel (PLAVIX) 75 MG tabletIndication s:Acute CVA (cerebrovascular accident) (H),Type 2 diabetes mellitus without complication, without long-term current use of insulin (H),Benign essential hypertension Take 1 tablet (75 mg) by mouth daily. 20 tablet 09/18/19 25 Active insulin glargine (LANTUS PEN) 100 UNIT/ML penIndications:T ype 2 diabetes mellitus without complication, without long-term current use of insulin (H) Inject 30 Units subcutaneously at bedtime. 18 mL 09/18/19 25 Active atorvastatin (LIPITOR) 10 MG tabletIndication s:Type 2 diabetes mellitus without complication, without long-term current use of insulin (H) Take 1 tablet (10 mg) by mouth daily 90 tablet 3 09/09/19 22 025 Discontin ued(Med Rec(No AVS / No eCancel)) metFORMIN (GLUCOPHAGE) 500 MG tabletIndication s:Uncontrolled type 2 diabetes mellitus with hyperglycemia (H) Take 2 tablets (1,000 mg) by mouth 2 times daily (with meals) for 14 days 360 tablet 3 02/03/20 22 025 Discontin ued(Med Rec(No AVS / No eCancel)) exenatide ER (BYDURECARLENE BCI) 2 MG/0.85ML auto-injectorInd ications:Type 2 diabetes mellitus without complication, without long-term current use of insulin (H) Inject 2 mg Subcutaneous every 7 days 5 mL 4 02/03/20 22 025 Discontin ued(Med Rec(No AVS / No eCancel)) canagliflozin (INVOKANA) 100 MG tabletIndication s:Type 2 diabetes mellitus without complication, without long-term current use of insulin (H) Take 1 tablet (100 mg) by mouth every morning (before breakfast) 90 tablet 3 02/03/20 22 025 Discontin ued(Med Rec(No AVS / No eCancel)) losartan (COZAAR) 25 MG tabletIndication s:Stage 3a chronic kidney disease (H),Type 2 diabetes mellitus without complication, without long-term current use of insulin (H) Take 1 tablet (25 mg) by mouth daily 90 tablet 3 02/03/20 22 025 Discontin ued(Med Rec(No AVS / No eCancel)) buPROPion (WELLBUTRIN SR) 150 MG 12 hr tabletIndication s:Encounter for tobacco use cessation counseling Take 1 tablet (150 mg) by mouth 2 times daily 180 tablet 3 10/02/19 23 025 Discontin ued(Med Rec(No AVS / No eCancel)) ASPIRIN LOW DOSE 81 MG EC tabletIndication s:Type 2 diabetes mellitus without complication, without long-term current use of insulin (H) Take 1 tablet (81 mg) by mouth daily 90 tablet 3 10/02/19 23 025 Discontin ued(Med Rec(No AVS / No eCancel)) Active Problems Problem Noted Date Diagnosed Date Acute CVA (cerebrovascular accident) 09/15/2024 Type 2 diabetes mellitus wit hout complication, without long-term current use of insulin 09/08/2021 Benign essential hypertension 09/08/2021 H/O splenectomy 09/08/2021 Solitary kidney, acquired 09/08/2021 ANG (obstructive sleep apnea) 09/08/2021 BiPAP (biphasic positive airway pressure) depend ence 09/08/2021 Stage 3a chronic kidney disease 09/08/2021 Morbid obesity due to excess calories 03/06/2013 Tobacco abuse 03/06/2013 Essential and other specified forms of tremor Encounters Date Type Department Care Team Description 09/18/2024 Orders Only [facility] [address] [place] [address] Kera Dasilva APRN CNP Morbid obesity due to excess calories (H) (Primary Dx) 09/17/2024 Telephone [place] [address] [facility] [address] [place] [address] Trish Gandara DO 09/15/2024 5:13 AM CDT - 09/17/2024 1:20 PM CDT Hospital Encounter [place] [address] [facility] [address] [place] [address] Guanaco Birmingham MD Blomquist, Katherine, DO Tobacco abuse (Primary Dx); Acute CVA (cerebrovascular accident) (H); Type 2 diabetes mellitus without complication, without long-term current use of insulin (H); Benign essential hypertension; Stage 3a chronic kidney disease (H); ANG (obstructive sleep apnea); Morbid obesity due to excess calories (H) Discharge Disposition: Home or Self Care 09/15/2024 Orders Only (auto-released) [place] [address] [facility] [address] [place] [address] Kera Dasilva APRN CNP Acute CVA (cerebrovascular accident) (H) 09/15/2024 Travel from Last 3 Months Immunizations Immunization Administration Dates Next Due COVID-19 MONOVALENT 12+ (Pfizer) 01/31/2021,12/20 HIB (PRP-T) 10/06/2021 Influenza Vaccine >6 months,quad, PF ,02/08/2020,01/30/2015,12/25 Meningococcal ACWY (Menactra ) 10/06/2021 Meningococcal B (Bexsero ) 10/06/2021 Pneumococcal 20 valent Conju gate (Prevnar 20) 10/06/2021 TDAP Vaccine (Adacel) 02/03/2013 Family History Medical History Relation Comments Heart Disease Father stents placed Heart Disease Paternal Grandfather Prostate Cancer Paternal Grandfather Heart Disease Paternal Uncle 1 grandfather bro ther Cancer - colorectal Paternal Uncle 2 Relation Status Comments Brother 1 Alive Brother 2 Alive Daughter Alive adopted Father Alive Maternal Grandfather Maternal Grandmother Alive Mother Alive Paternal Grandfather Alive Paternal Grandmother Alive Paternal Uncle 1 Paternal Uncle 2 Social History Tobacco Use Types Packs/Day Years [...] on file Legal Sex Male 1:11 PM [employer] Gender Identity Not on file Sexual Orientation Not on file Last Filed Vital Signs Vital Sign Reading [...] 11.2 oz) 09/17/2024 6:16 AM CDT Height 181.6 cm (5' 11.5) 02/02/2022 9:59 AM CS T Body Mass Index 35.3 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 Plan of Treatment Health Maintenance Due Date Last Done Comments ADVANCE CARE PLANNING 1980 ANNUAL REVIEW OF HM ORDERS 1982 DIABETIC FOOT EXAM 1982 EYE EXAM 1982 HIV SCREENING 1997 HEPATITIS C SCREENING 2000 HEPATITIS B VACCINE (1 of 3 - 19+ 3-dose series) 2001 NICOTINE/TOBACCO CESSATION COUNSELING Q 1 YR 03/06/2014 03/06/2013, 02/03/2013 YEARLY PREVENTIVE VISIT 03/06/2014 03/06/2013 MICROALBUMIN 02/02/2023 02/02/2022 DTAP/TDAP/TD VACCINE (2 - Td or Tdap) 02/03/2023 02/03/2013 COVID-19 VACCINE ( season) 2023 01/31/2021, 01/06/2021 PHQ-2 (once per calendar year) 2024 INFLUENZA VACCINE (#1) 2024 , 02/08/2020, 01/30/2015, Additional history exists A1C 12/16/2024 09/15/2024, 01/20, 09/08/2021 LIPID 09/15/2025 09/15/2024, 06 , 03/06/2013 BMP 09/17/2025 09/17/2024, 08/21, 09/15/2024, Additional history exists HEMOGLOBIN 09/17/2025 09/17/2024, 08/21, 09/15/2024, Additional history exists ZOSTER VACCINE (1 of 2) 2032 MENINGITIS VACCINE Aged Out 10/06/2021 No longer eligible based on patient's age to complete this topic PNEUMOCOCCAL VACCINE: PEDIATRICS (0 to 5 YEARS) AND AT-RISK PATIENTS (6 to 49 YEARS) Completed 10/06/2021 URINALYSIS Completed 09/15/2024 HPV VACCINE Aged Out No longer eligi ble based on patient's age to complete this topic Procedures Procedure Name Priority Date/Time Associated Diagnosis [...] BY METER Routine 09/16/2024 7:39 AM CDT CBC WITH PLATELETS Routine 09/16/2024 6: 46 AM CDT BASIC METABOLIC PANEL Routine 09/16/2024 6:46 AM CDT GLUCOSE BY METER Routine 09/16/2024 [...] METER STAT 09/15/2024 10:2 4 AM CDT MRA NECK (CAROTIDS) W/O & W CONTRAST STAT 09/15/2024 10:21 AM CDT MRA BRAIN ([place]) W/O CONTRAST STAT 09/15/2024 10:21 AM CDT MR BRAIN W/O & W CONTRAST STAT 09/15/2024 10:21 AM CDT GLUCOSE BY METER STAT 09/15/2024 8:13 AM CDT URINE DRUG SCREEN STAT 09/15/2024 8:0 2 AM CDT URINE DRUG SCREEN PANEL STAT 09/15/2024 8:02 AM CDT ROUTINE UA WITH MICROSCOPIC REFLEX TO CULTURE STAT 09/15/2024 8:02 AM CDT BETA 2 GLYCOPROTEIN 1 ANTIBODY IGM Add-On 09/15/2024 7:23 AM CDT BETA 2 GLYCOPROTEIN 1 ANTIBODY IGG Add-On 09/15/2024 7:23 AM CDT TROPONIN T, HIGH SENSITIVITY STAT 09/15/2024 7:[address] HEAD W/O CONTRAST STAT 09/15/2024 6:34 AM CDT LIPID REFLEX TO DIRECT LDL PANEL Add-On 09/15/2024 5:35 AM CDT ISTAT GASES LACTATE VENOUS POCT STAT 09/15/2024 5:35 AM CDT KETONE BETA-HYDROXYBUTYRATE QUANTITATIVE, RAPID STAT 09/15/2024 5:35 AM CDT CBC WITH PLATELETS & DIFFERENTIAL STAT 09/15/2024 5:33 AM CDT CARDIOLIPIN KATI IGG AND IGM Add-On 09/15/2024 5:33 AM CDT HEMOGLOBIN A1C Add-On 09/15/2024 5:33 AM CDT HEPATIC FUNCTION PANEL STAT 5:33 AM CDT CBC WITH PLATELETS AND DIFFERENTIAL STAT 09/15/2024 5:33 AM CDT TROPONIN T, HIGH SENSITIVITY STAT 09/15/2024 5:33 AM CDT ETHANOL LEVEL BLOOD STAT 09/15/2024 5 :33 AM CDT BASIC METABOLIC PANEL STAT 09/15/2024 5:33 AM CDT EKG 12-LEAD, TRACING ONLY STAT 09/15/2024 5:32 AM CDT GLUCOSE BY METER STAT 09/15/2024 5:17 AM CDT ALBUMIN RANDOM URINE QUANTITATIVE Routine 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 Pathologist [facility] GLUCOSE BY METER POCT 250(H) 70 - 99 mg/dL 09/17/2024 12:08 PM CDT LABORATORY POC Blood, Capillary BLOOD SPECIMEN / Unknown 09/17/2024 12:01 PM CDT 09/17/2024 12:08 PM CDT us Trish Gandara DO LAB - BEAKER POCT Final R esult LABORATORY [facility] Acute Care Lab [address] [facility] Lab (1st floor, no room number) [place] [address], [facility] * (ABNORMAL) Basic metabolic panel (09/17/2024 7:38 AM CDT) Only the most recent of3 resultswithin the time period is included. Pathologist [facility] Sodium 138 135 - 145 mmol/L 09/17/2024 8:25 AM CDT LABORATORY Potassium 3.8 3.4 - 5.3 mmol/L 09/17/2024 8:25 AM CDT LABORATORY Chloride 109(H) 98 - 107 mmol/L 09/17/2024 8:25 AM T LABORATORY Carbon Dioxide (CO2) 22 22 - 29 mmol/L 09/17/2024 8:25 AM CDT LABORATORY Anion Gap 7 7 - 15 mmol/L 09/17/2024 8:25 AM CDT LABORATORY Urea Nitrogen 10.7 6.0 - 20.0 mg/dL 09/17/2024 8:25 AM CDT LABORATORY Creatinine 0.72 0.51 - 1.17 mg/dL 09/17/2024 8:25 AM [facility] Comment: Male and Female 0-2 Months [...] >90 >60 mL/min/1. 73m2 09/17/2024 8:25 AM [facility] Comment: The generation of the estimated [...] 8.8 - 10.4 mg/dL 09/17/2024 8:25 AM [facility] Glucose 218(H) 70 - 99 mg/dL 09/17/2024 8:25 AM [facility] Blood STRUCTURE OF RIGHT HAND / [...] BLOOD ORDERABLES Fi nal Result [facility] LABORATORY [facility] Care Lab [address] Lab (1st floor, no room number) [place] [address], [facility] * (ABNORMAL) CBC with platelets (09/17/2024 7:38 AM CDT) Only the most recent of2 resultswithin the time period is included. WBC Count 11.7(H) 4.0 - 11.0 10e3/uL 09/17/2024 8:08 AM CDT [facility] LABORATORY RBC Count 4.03 3.80 - 5.90 10e6/uL 09/17/2024 8:08 AM CDT [facility] Comment:Reference Range: Fem iveth 3.80-5.20 10e6/uL Male 4.40-5.90 10e6u/L Hemoglobin 12.5 11.7 - 17.7 g/dL 09/17/2024 8:08 AM CDT [facility] Comment:Reference Range: Fem iveth 11.7-15.7 g/dL Male 13.3-17.7 g/dL Hematocrit 36.6 [...] LAB - BLOOD ORDERABLES Fi nal Result [facility] Acute Care Lab [address] Lab (1st floor, no room number) [place] [address], [facility] * CT Chest/Abdomen/Pelvis w Contrast (09/15/2024 [...] CDT EXAM: CT CHEST/ABDOMEN/PELVIS W CONTRAST LOCATION: [facility] DATE: 09/15/2024 INDICATION: multifocal infarcts, [...] 09/16/2024 EXAM: CT CHEST/ABDOMEN/PELVIS W CONTRAST LOCATION: [facility] DATE: 09/15/2024 INDICATION: multifocal infarcts, [...] with multiple left upper quadrantsplenules. Kera Dasilva APRN, CNP IMG CT ORDERABLES Final Result * Protein S Antigen Free (09/15/2024 5:08 PM CDT) Protein S Antigen Free 103 55 - [...] the individual's appropriate clinical context. Kera Dasilva APRN, CNP LAB - BLOOD ORDERABLES Final Result [facility] [address] [facility], [address] [place] [address], [facility] * Protein C chromogenic (09/15/2024 5:08 PM CDT) Protein C Chromogenic 149 70 - 170 % 09/18/2024 10:02 AM CDT [facility] Blood STRUCTURE OF LEFT UPPER LIMB / Unknown Venipuncture / Unknown 09/15/2024 5:08 PM CDT 09/15/2024 5:17 PM CDT Kera Dasilva APRN [facility] LAB - BLOOD ORDERABLES Final Result Performing Organization Address City/[facility] Co de Phone Number [facility] [address] [facility] [address] [facility], [address] [address], [facility] * Lupus Anticoagulant Panel (09/15/2024 5:08 PM CDT) Pathologist [facility] PTT Ratio 0.97 <1.30 5 1:58 PM CDT [facility] DRVVT Screen Ratio 0.91 <1.08 5 1:58 PM CDT [facility] Lupus Result Negative Negative 1:58 PM CDT [facility] Lupus Interpretation Results APTT ratio is normal. DRVVT Screen ratio is normal. Interpretation NEGATIVE TEST; A LUPUS ANTICOAGULANT WAS NOT DETECTED IN THIS SPECIMEN WITHIN THE LIMITS OF THE TESTING REPERTOIRE. Recommendations If the clinical picture is strongly suggestive of an antiphospholipid syndrome, recommend anticardiolipin and asqu-0-fnepvzpoqbt n (IgG and IgM) antibody tests. Jessica Del Valle MD, PhD [facility] 5 1:58 PM CDT SPECIALTY LABS Blood STRUCTURE OF LEFT UPPER LIMB / Unknown Venipuncture / Unknown 09/15/2024 5:08 PM CDT 09/15/2024 5:17 PM CDT Kera Dasilva APRN [employer] LAB - BLOOD ORDERABLES Final Result [facility] [address] [facility] [address], [address] [address], [facility] SPECIALTY LABS [facility] [address] [facility] [address], [address] [place] [phone] * Antithrombin III (09/15/2024 5:08 PM CDT) Antithrombin III 99 85 - 135 % 09/19/19 10:02 AM CDT [facility] Blood STRUCTURE OF LEFT UPPER LIMB / Unknown Venipuncture / Unknown 09/15/2024 5:08 PM CDT 09/15/2024 5:17 PM CDT us Kera Dasilva APRN [employer] LAB - BLOOD ORDERABLES Final Result [facility] [address], [address] [place] [address] * CTA Head Neck with Contrast (09/15/2024 2:15 PM CDT) Anatomical Region Laterality Modality Head, SUBRAD CT NEURO, SUBRA D CT NEURO, UMP CT NEURO, RAD CT Computed Tomography 09/15/2024 2:15 PM CDT Impressions 09/15/2024 2:44 PM CDT IMPRESSION: HEAD CTA: 1. Short segment near occlusion/occlusion of the superior branch of the left P2 ZIPPER CUTTER with distal reconstitution. 2. No high-grade stenosis or occlusion of the remaining intracranial arteries.. NECK CTA: No high-grade stenosis of the major cervical arteries. Narrative 09/15/2024 2:44 PM CDT EXAM: CTA HEAD NECK W CONTRAST LOCATION: [facility] DATE: 09/15/2024 INDICATION: new multifocal [...] aneurysm, or high flow vascular malformation. Standard [place] anatomy. POSTERIOR CIRCULATION: Short segment (0.6 cm) near occlusion/occlusion of the superior branch of the left P2 ZIPPER CUTTER (series 6 image 459 and series 905 [...] EXAM: CTA HEAD NECK W CONTRAST LOCATION: [facility] DATE: 09/15/2024 INDICATION: new multifocal [...] stenosis/occlusion, aneurysm, or highflow vascular malformation. Standard [place] anatomy. POSTERIOR CIRCULATION: Short segment (0.6 cm) near occlusion/occlusion ofthe superior branch of the left P2 ZIPPER CUTTER (series 6 image 459 and series 905image [...] of the superior branch of theleft P2 ZIPPER CUTTER with distal reconstitution. 2. No high-grade stenosis or occlusion of the remaining intracranialarteries.. NECK CTA: No high-grade stenosis of the major cervical arteries. Kera Dasilva APRN [employer] DES[employer] IMG CT ORDERABLES Final Result * US Lower Extremity Venous Duplex Bilateral (09/15/2024 2:04 PM CDT) Anatomical Region Laterality Modality Vascular, Thigh, Leg Ultrasound 09/15/2024 2:04 PM CDT Impressions 09/15/2024 2:06 PM CDT IMPRESSION: 1. No deep venous thrombosis in the bilateral lower extremities. Narrative 09/15/2024 2:06 PM CDT EXAM: US LOWER EXTREMITY VENOUS DUPLEX BILATERAL LOCATION: [facility] DATE: 09/15/2024 INDICATION: evaluate for [...] US LOWER EXTREMITY VENOUS DUPLEX BILATERAL LOCATION: [facility] DATE: 09/15/2024 INDICATION: evaluate for [...] venous thrombosis in the bilateral lower extremities. Edvin Art Mindy NURSING EDUCATION CONSULTANT [employer]ISSION [employer]OMO[employer]LE DESIGNER [facility] ORDER[facility]ECIA Whittaker al Result * ECHO COMPLETE BUBBLE (09/15/2024 1:26 PM CDT) [facility] Signature LVEF 55-60% CARDIOLOGY RESULTS Anatomical Region Laterality Modality Echocardiography 09/15/2024 12:3 8 PM CDT Narrative 09/15/2024 2:46 PM CDT [id number]^BROWN^KERA^[facility] Echocardiography Laboratory [address] [place] [id number] Name: SHUN MIGUEL : 1980 Study Date: 09/15/2024 12:38 PM Age: 43 yrs Gender: Male Patient Location: [facility] Reason For Study: CVA Ordering Physician: KERA [...] Procedure Note Parker Casillas MD - 09/15/2024 [id number]^BROWN^KERA^[facility] Echocardiography Laboratory [address] [place] [id number] Name: SHUN MIGUEL : 1980 Study Date: 09/15/2024 12:38 PM Age: 43 yrs Gender: Male Patient Location: [facility] Reason For Study: CVA Ordering Physician: KERA [...] Parker Casillas on 09/15/2024 02:46 PM Kera Peralta Brown HORTONN L[employer]ISSION [employer]LE DESIGNER CV ECHO ORDERABLES Edit ed Result - Final * MR Brain w/o & w Contrast [...] infarct, although the abnormality in the left ZIPPER CUTTER would correlate. There may be some petechial hemorrhage within the area of presumed infarct in the left corpus callosum. 2. Apparent mild leptomeningeal enhancement in the medial left occipital lobe is in the area of infarct and could represent vascular congestion. 3. Recommend follow-up MRI in 4-6 weeks to ensure expected evolution. HEAD MRA: 1. Normal MRA [place]. NECK MRA: 1. 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 There is reconstitution of a vessel approximately 0.6 cm distal to the stenosis/occlusion. 2. No other vascular cutoff of the proximal major intracranial arteries. Narrative 09/15/2024 12:03 PM CDT EXAM: MR BRAIN WITHOUT AND WITH CONTRAST, MRA BRAIN ([place]) WITHOUT CONTRAST, MRA NECK (CAROTIDS) WITHOUT AND WITH CONTRAST LOCATION: [facility] DATE: 09/15/2024 INDICATION: Transient global amnesia. COMPARISON: Head CT 09/15/2024. Brain MR 03/30/2013. CONTRAST: 10 mL Gadavist. TECHNIQUE: 1) Routine multiplanar multisequence head MRI without and with intravenous contrast. 2) 3D egqu-ep-bkyfgu head MRA without intravenous contrast. 3) Neck [...] hippocampus. There is a more distal left ZIPPER CUTTER branch which opacifies approximately 0.6 cm distal to the stenosis/occlusion. No other vascular cutoffs of the proximal ACAs, MCAs, or battery charger conveyor line. Prominent right posterior communicating artery also with [...] BRAIN WITHOUT AND WITH CONTRAST, MRA BRAIN ([place])WITHOUT CONTRAST, MRA NECK (CAROTIDS) WITHOUT AND WITH CONTRAST LOCATION: [facility] DATE: 09/15/2024 INDICATION: Transient global amnesia. COMPARISON: Head CT 09/15/2024. Brain MR 03/30/2013. CONTRAST: 10 mL Gadavist. TECHNIQUE: 1) Routine multiplanar multisequence head MRI without and with intravenouscontrast. 2) 3D hrip-kj-psasvy head MRA without intravenous contrast. 3) Neck MRA without and with IV contrast. Stenosis measurements madeaccording to NASCET criteria unless otherwise specified. FINDINGS: HEAD MRI: INTRACRANIAL CONTENTS: Region of restricted diffusion and [id number] in the right anterior basal ganglia measuring [...] lefthippocampus. There is a more distal left ZIPPER CUTTER branch which opacifiesapproximately 0.6 cm distal to the stenosis/occlusion. No other vascular cutoffs of the proximal ACAs, MCAs, or battery charger conveyor line. Prominentright posterior communicating artery also with the [...] for infarct, although theabnormality in the left ZIPPER CUTTER would correlate. There may be some petechial hemorrhage within the area ofpresumed infarct in the left corpus callosum. 2. Apparent mild leptomeningeal enhancement in the medial left occipitallobe is in the area of infarct and could represent vascular congestion. 3. Recommend follow-up MRI in 4-6 weeks to ensure expected evolution. HEAD MRA: 1. Normal MRA [place]. NECK MRA: 1. 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 There is reconstitution of a vesselapproximately 0.6 cm distal to the stenosis/occlusion. 2. No other vascular cutoff of the proximal major intracranialarteries. us Guanaco Birmingham MD IMG MRI ORDERABLES Final Result * MRA Angiogram Neck w/o & w [...] infarct, although the abnormality in the left ZIPPER CUTTER would correlate. There may be some petechial hemorrhage within the area of presumed infarct in the left corpus callosum. 2. Apparent mild leptomeningeal enhancement in the medial left occipital lobe is in the area of infarct and could represent vascular congestion. 3. Recommend follow-up MRI in 4-6 weeks to ensure expected evolution. HEAD MRA: 1. Normal MRA [place]. NECK MRA: 1. 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 There is reconstitution of a vessel approximately 0.6 cm distal to the stenosis/occlusion. 2. No other vascular cutoff of the proximal major intracranial arteries. Narrative 09/15/2024 12:03 PM CDT EXAM: MR BRAIN WITHOUT AND WITH CONTRAST, MRA BRAIN ([place]) WITHOUT CONTRAST, MRA NECK (CAROTIDS) WITHOUT AND WITH CONTRAST LOCATION: [facility] DATE: 09/15/2024 INDICATION: Transient global amnesia. COMPARISON: Head CT 09/15/2024. Brain MR 03/30/2013. CONTRAST: 10 mL Gadavist. TECHNIQUE: 1) Routine multiplanar multisequence head MRI without and with intravenous contrast. 2) 3D wlel-su-feeriy head MRA without intravenous contrast. 3) Neck [...] hippocampus. There is a more distal left ZIPPER CUTTER branch which opacifies approximately 0.6 cm distal to the stenosis/occlusion. No other vascular cutoffs of the proximal ACAs, MCAs, or battery charger conveyor line. Prominent right posterior communicating artery also with [...] BRAIN WITHOUT AND WITH CONTRAST, MRA BRAIN ([place]WITHOUT CONTRAST, MRA NECK (CAROTIDS) WITHOUT AND WITH CONTRAST LOCATION: [facility] DATE: 09/15/2024 INDICATION: Transient global amnesia. COMPARISON: Head CT 09/15/2024. Brain MR 03/30/2013. CONTRAST: 10 mL Gadavist. TECHNIQUE: 1) Routine multiplanar multisequence head MRI without and with intravenouscontrast. 2) 3D pzrx-bd-fmpdzr head MRA without intravenous contrast. 3) Neck MRA without and with IV contrast. Stenosis measurements madeaccording to NASCET criteria unless otherwise specified. FINDINGS: HEAD MRI: INTRACRANIAL CONTENTS: Region of restricted diffusion and [id number] in the right anterior basal ganglia measuring [...] lefthippocampus. There is a more distal left ZIPPER CUTTER branch which opacifiesapproximately 0.6 cm distal to the stenosis/occlusion. No other vascular cutoffs of the proximal ACAs, MCAs, or battery charger conveyor line. Prominentright posterior communicating artery also with the [...] for infarct, although theabnormality in the left ZIPPER CUTTER would correlate. There may be some petechial hemorrhage within the area ofpresumed infarct in the left corpus callosum. 2. Apparent mild leptomeningeal enhancement in the medial left occipitallobe is in the area of infarct and could represent vascular congestion. 3. Recommend follow-up MRI in 4-6 weeks to ensure expected evolution. HEAD MRA: 1. Normal MRA [place]. NECK MRA: 1. 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 There is reconstitution of a vesselapproximately 0.6 cm distal to the stenosis/occlusion. 2. No other vascular cutoff of the proximal major intracranialarteries. Guanaco Birmingham MD IMG MRI ORDERABLES Final Result * MRA Angiogram [...] infarct, although the abnormality in the left ZIPPER CUTTER would correlate. There may be some petechial hemorrhage within the area of presumed infarct in the left corpus callosum. 2. Apparent mild leptomeningeal enhancement in the medial left occipital lobe is in the area of infarct and could represent vascular congestion. 3. Recommend follow-up MRI in 4-6 weeks to ensure expected evolution. HEAD MRA: 1. Normal MRA [place]. NECK MRA: 1. 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 There is reconstitution of a vessel approximately 0.6 cm distal to the stenosis/occlusion. 2. No other vascular cutoff of the proximal major intracranial arteries. Narrative 09/15/2024 12:03 PM CDT EXAM: MR BRAIN WITHOUT AND WITH CONTRAST, MRA BRAIN ([place]) WITHOUT CONTRAST, MRA NECK (CAROTIDS) WITHOUT AND WITH CONTRAST LOCATION: [facility] DATE: 09/15/2024 INDICATION: Transient global amnesia. COMPARISON: Head CT 09/15/2024. Brain MR 03/30/2013. CONTRAST: 10 mL Gadavist. TECHNIQUE: 1) Routine multiplanar multisequence head MRI without and with intravenous contrast. 2) 3D oyaz-bv-qdzbxd head MRA without intravenous contrast. 3) Neck [...] hippocampus. There is a more distal left ZIPPER CUTTER branch which opacifies approximately 0.6 cm distal to the stenosis/occlusion. No other vascular cutoffs of the proximal ACAs, MCAs, or battery charger conveyor line. Prominent right posterior communicating artery also with [...] BRAIN WITHOUT AND WITH CONTRAST, MRA BRAIN ([place])WITHOUT CONTRAST, MRA NECK (CAROTIDS) WITHOUT AND WITH CONTRAST LOCATION: [facility] DATE: 09/15/2024 INDICATION: Transient global amnesia. COMPARISON: Head CT 09/15/2024. Brain MR 03/30/2013. CONTRAST: 10 mL Gadavist. TECHNIQUE: 1) Routine multiplanar multisequence head MRI without and with intravenouscontrast. 2) 3D fxqm-at-tvqzzg head MRA without intravenous contrast. 3) Neck MRA without and with IV contrast. Stenosis measurements madeaccording to NASCET criteria unless otherwise specified. FINDINGS: HEAD MRI: INTRACRANIAL CONTENTS: Region of restricted diffusion and [id number] in the right anterior basal ganglia measuring [...] lefthippocampus. There is a more distal left ZIPPER CUTTER branch which opacifiesapproximately 0.6 cm distal to the stenosis/occlusion. No other vascular cutoffs of the proximal ACAs, MCAs, or battery charger conveyor line. Prominentright posterior communicating artery also with the [...] for infarct, although theabnormality in the left ZIP[place] CUTTER would correlate. There may be some petechial hemorrhage within the area ofpresumed infarct in the left corpus callosum. 2. Apparent mild leptomeningeal enhancement in the medial left occipitallobe is in the area of infarct and could represent vascular congestion. 3. Recommend follow-up MRI in 4-6 weeks to ensure expected evolution. HEAD MRA: 1. Normal MRA [place]. NECK MRA: 1. 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 There is reconstitution of a vesselapproximately 0.6 cm distal to the stenosis/occlusion. 2. No other vascular cutoff of the proximal major intracranialarteries. Guanaco Birmingham MD [facility] MRI ORDERABLES Final Result * (ABNORMAL) UA with Microscopic reflex to Culture (09/15/2024 8:02 AM CDT) Color Urine Straw Colorless, Straw, Light Yellow, Yellow 09/15/2024 8:48 AM CDT [facility] Appearance Urine Clear Clear 09/16/19 8:48 AM CDT LABORATORY Glucose Urine >=1000(A) Negative mg/dL 09/15/2024 8:48 AM CDT LABORATORY Bilirubin Urine Negative Negative 8:48 AM CDT LABORATORY Ketones Urine 10(A) Negative mg/dL 09/15/2024 8:48 AM CDT LABORATORY Specific [place] Urine 1.032 1.003 - 1.035 09/15/2024 8:48 AM CDT LABORATORY Blood Urine Trace(A) Negative 09/15/2024 8:48 AM CDT LABORATORY pH Urine 5.5 5.0 - 7.0 09/15/2024 8:48 AM CDT LABORATORY Protein Albumin Urine 70(A) Negative mg/dL 09/15/2024 8:48 AM CDT LABORATORY Urobilinogen Urine Normal Normal mg/dL 09/15/2024 8:48 AM CDT LABORATORY Nitrite Urine Negative Negative 09/15/2024 8:48 AM CDT LABORATORY Leukocyte Esterase Urine Negative Negative 09/15/2024 8:48 AM CDT LABORATORY Mucus Urine Present(A) None Seen /LPF 09/15/2024 8:48 AM CDT LABORATORY RBC Urine <1 <=2 /HPF 09/15/2024 8:48 AM CDT LABORATORY WBC Urine <1 <=5 /HPF 09/15/2024 8:48 AM CDT LABORATORY Urine URINE SPECIMEN OBTAINED BY CLEAN CATCH PROCEDURE / Unknown Non-blood Collection / Unknown 09/15/2024 8:02 AM CDT 09/15/2024 8:09 AM CDT Narrative LABORATORY - 09/15/2024 8:48 AM CDT Urine Culture not indicated us Guanaco Birmingham MD LAB - URINE ORDERABLES Final Res ult LABORATORY [facility] [address] [facility] Lab (1st floor, no room number) [place] [address], [facility] * Urine Drug Screen Panel (09/15/2024 8:02 AM CDT) [facility] Amphetamines Urine Screen Negative Screen Negative [...] [facility] Comment:Cutoff for a negativ e benzodiazepine is less than 100 ng/mL. Cannabinoids Urine Screen Negative Screen Negative 09/15/2024 8:50 AM CDT [facility] Comment:Cutoff for a negativ e cannabinoid is less than 50 ng/mL. Cocaine Urine Screen Negative Screen Negative 09/15/2024 8:50 AM CDT [facility] Comment:Cutoff for a negativ e cocaine is less than 300 ng/mL. Fentanyl Qual Urine Screen Negative Screen Negative 09/15/2024 8:50 AM CDT [facility] Comment:Cutoff for negative fentanyl is less than 5 ng/mL. Opiates Urine Screen Negative Screen Negative 09/15/2024 8:50 AM CDT [facility] Comment:Cutoff for a negativ e opiate is less than 300 ng/mL. PCP Urine Screen Negative Screen Negative 09/15/2024 8:50 AM CDT [facility] Comment:Cutoff for a negativ e PCP is less than 25 ng/mL. Urine URINE SPECIMEN OBTAINED BY CLEAN CATCH PROCEDURE / Unknown Non-blood Collection / Unknown 09/15/2024 8:02 AM CDT 09/15/2024 8:09 AM CDT us Tomy Carson MD LAB - URINE ORDERABLES Final Result LABORATORY [facility] [address] [facility] Lab (1st floor, no room number) [place] [address], [facility] * Beta 2 Glycoprotein 1 Antibody IgM (09/15/2024 7:23 AM CDT) [facility] Beta 2 Glycoprotein 1 Antibody IgM <2.4 <7.0 U/mL 09/18/2024 2:14 PM CDT SPECIALTY CORE/PROT/END O Comment:Negative Blood BLOOD SPECIMEN / Unknown Venipuncture / Unknown 09/15/2024 7:23 AM CDT 09/15/2024 7:30 AM CDT Kera Dasilva APRN [employer] LAB - BLOOD ORDERABLES Final Result [facility] SPECIALTY CORE/PROT/ENDO [facility] Specialty Core/Prot/Endo [address] [facility], [address] * Beta 2 Glycoprotein 1 Antibody IgG (09/15/2024 7:23 AM CDT) Beta 2 Glycoprotein 1 Antibody IgG <0.8 <7.0 U/mL 09/18/2024 2:14 PM CDT SPECIALTY CORE/PROT/END O Comment:Negative Blood BLOOD SPECIMEN / Unknown Venipuncture / Unknown 09/15/2024 7:23 AM CDT 09/15/2024 7:30 AM CDT Kera Dasilva APRN, CNP LAB - BLOOD ORDERABLES Final Result [facility] SPECIALTY CORE/PROT/ENDO UM Specialty Core/Prot/Endo [address] [facility], [address] * (ABNORMAL) Troponin T, High Sensitivity (09/15/2024 7:23 AM CDT) Only the most recent of2 resultswithin the time period is included. Troponin T, High Sensitivity 26(H) <=22 ng/L [...] MD LAB - BLOOD ORDERABLES Final Result [facility] [address] [facility] Lab (1st floor, no room number) [place] [address] * Head CT w/o contrast (09/15/2024 6:34 [...] CDT EXAM: CT HEAD W/O CONTRAST LOCATION: [facility] DATE: 09/15/2024 INDICATION: AMS. COMPARISON: [...] 09/15/2024 EXAM: CT HEAD W/O CONTRAST LOCATION: [facility] DATE: 09/15/2024 INDICATION: AMS. COMPARISON: [...] IMG CT ORDERABLES Final Result * (ABNORMAL) iStat Gases (lactate) venous, POCT (09/15/2024 5:35 AM CDT) Lactic Acid POCT 0.7 0.7 - 2.0 [...] BEAKER POCT Final Result [facility] POC [facility] [address] Lab (1st floor, no room number) [place] [address] * (ABNORMAL) Lipid panel reflex to direct [...] High: >= 220 mg/dL us Kera Dasilva APRN, CNP LAB - BLOOD ORDERABLES Final Result LABORATORY [facility] [address] [facility], [address] [place] [address] * (ABNORMAL) Ketone Beta-Hydroxybutyrate Quantitative (09/15/2024 5:35 AM CDT) Pathologist [facility] Ketone (Beta-Hydroxybuty rate) Quantitative 0.84(H) <=0.30 mmol/L 09/15/2024 6:16 AM CDT LABORATORY Blood BLOOD SPECIMEN / Unknown Venipuncture / Unknown 09/15/2024 5:35 AM CDT 09/15/2024 5:54 AM CDT us Tomy Carson MD LAB - BLOOD ORDERABLES Final Result LABORATORY [facility] [address] Lab (1st floor, no room number) [place] [address] * (ABNORMAL) CBC with platelets and [...] LAB - BLOOD ORDERABLES Final Result LABORATORY [facility] [address] Lab (1st floor, no room number) [place] [address] * Cardiolipin Kati IgG and IgM (09/15/2024 5:33 AM CDT) Cardiolipin Kati IgG Instrument Value <2.0 <10.0 GPL-U/mL 09/18/2024 2:14 PM CDT SPECIALTY CORE/PROT/END O Cardiolipin Antibody IgG Negative Negative 09/18/2024 2:14 PM CDT SPECIALTY CORE/PROT/END O Cardiolipin Kati IgM Instrument Value <2.0 <10.0 MPL-U/mL 09/18/2024 2:14 PM CDT UM SPECIALTY CORE/PROT/END O Cardiolipin Antibody IgM Negative Negative 09/18/2024 2:14 PM CDT UM SPECIALTY CORE/PROT/END O Blood BLOOD SPECIMEN / Unknown Venipuncture / Unknown 09/15/2024 5:33 AM CDT 09/15/2024 5:54 AM CDT us Kera Dasilva APRN, CNP LAB - BLOOD ORDERABLES Final Result SPECIALTY CORE/PROT/ENDO Specialty Core/Prot/Endo [address] [facility], Room [address] [place] [address] * (ABNORMAL) Hepatic function panel (09/15/2024 5:33 AM CDT) Protein Total 6.2(L) 6.4 - 8.3 g/dL 09/15/2024 7:14 AM CDT [facility] Albumin 3.5 3.5 - 5.2 g/dL 09/15/2024 7:14 AM CDT [facility] Bilirubin Total 0.4 <=1.2 mg/dL 09/15/2024 7:14 AM CDT [facility] Alkaline Phosphatase 135 40 - 150 [...] AM CDT 09/15/2024 5:54 AM CDT Narrative LABORATORY - 09/15/2024 7:14 AM CDT The generation of reference intervals for this test is currently based on binary male or female sex. If the electronic health record information indicates another gender identity or if Legal Sex is recorded as Unknown, both male and female reference intervals are provided where applicable, and should be considered according to the individual's appropriate clinical context. Guanaco Birmingham MD LAB - BLOOD ORDERABLES Final Res ult LABORATORY [facility] [address] Lab (1st floor, no room number) [place] [phone] * (ABNORMAL) Hemoglobin A1c (09/15/2024 5:33 AM CDT) Estimated Average Glucose 381(H) <117 mg/dL 09/15/2024 3:49 PM CDT LABORATORY Hemoglobin A1C 14.9(H) <5.7 % 09/15/2024 3:49 PM CDT LABORATORY Comment: Normal <5.7% Prediabetes 5.7-6.4% Diabetes 6.5% or higher Note: Adopted from ADA consensus guidelines. Blood BLOOD SPECIMEN / Unknown Venipuncture / Unknown 09/15/2024 5:33 AM CDT 09/15/2024 5:54 AM CDT Edvin Guillen APRN, CNP LAB - BLOOD ORDERABLE S Final Result LABORATORY [facility] [address] Lab (1st floor, no room number) [place] [address] * Ethanol Level Blood (09/15/2024 5:33 AM CDT) Ethanol Level Blood <0.01 <=0.01 g/dL 09/15/2024 6:15 AM CDT LABORATORY Blood BLOOD SPECIMEN / Unknown Venipuncture / Unknown 09/15/2024 5:33 AM CDT 09/15/2024 5:54 AM CDT Tomy Carson MD LAB - BLOOD ORDERABLES Final Result LABORATORY [facility] [address] Lab (1st floor, no room number) [place] [address], [facility] * EKG 12-lead, tracing only (09/15/2024 5:32 AM CDT) Systolic Blood Pressure mmHg RADIOLOGY RESULTS Diastolic Blood Pressure mmHg RADIOLOGY RESULTS Ventricular Rate 88 BPM RAD IOLOGY RESULTS Atrial Rate 88 BPM RADIOLOG Y RESULTS NE Interval 170 ms RADIOLOG Y RESULTS QRS Duration 108 ms RADIOLO GY RESULTS QT 360 ms RADIOLOGY RESULTS QTc 435 ms RADIOLOGY RESULTS P [place] 51 degrees RADIOLOGY RESULTS R AXIS 92 degrees RADIOLOGY RESULTS T [place] 62 degrees RADIOLOGY RESULTS Interpretation ECG Sinus rhythm with sinus arrhythmia Rightward axis Borderline ECG No previous ECGs available Confirmed by - EMERGENCY ROOM, PHYSICIAN ([id number]), managing editor TERRY CEDEÑO ([id number]) on 09/15/2024 7:16:00 AM RADIOLOGY RESULTS 09/15/2024 5:32 AM CDT 09/15/2024 7:16 AM CDT Tomy Carson MD ECG ORDERABLES Edited Result - Final Performing Organization Address City/[facility]/ZIP Co de Phone Number RADIOLOGY RESULTS * (ABNORMAL) Albumin Random Urine Quantitative with Creat Ratio (02/02/2022 10:46 AM [employer]) Albumin Urine mg/L 104.2 mg/L 2021 11:38 AM [employer] LABORATORY Comment:The reference ranges have not been established in urine albumin. The results should be integrated into the clinical context for interpretation. Albumin Urine mg/g Cr 54.87(H) 0.00 - 25.00 mg/g Cr 02/02/2022 11:38 AM [employer] LABORATORY Comment: Microalbuminuria is defined as an albumin:creatinine ratio of 17 to 299 for males and 25 to 299 for females. A ratio of albumin:creatinine of 300 or higher is indicative of overt proteinuria. Due to biologic variability, positive results should be confirmed by a second, first-morning random or 24-hour timed urine specimen. If there is discrepancy, a third specimen is recommended. When 2 out of 3 results are in the microalbuminuria range, this is evidence for incipient nephropathy and warrants increased efforts at glucose control, blood pressure control, and institution of therapy with an gndlgfxrmgr-goiolbmqkz-pgxzma (FELICIANO) inhibitor (if the patient can tolerate it). Creatinine Urine mg/dL 189.9 mg/dL 02/02/2022 11:38 AM [employer] LABORATORY Comment:The reference ranges have not been established in urine creatinine. The results should be integrated into the clinical context for interpretation. Urine URINE SPECIMEN / Unknown Non-blood Collection / Unknown 02/02/2022 10:46 AM [employer]ER 02/02/2022 10:46 AM [employer]ER Emerson Dowd MD LAB - URINE ORDERABLES F inal Result LABORATORY [facility] [address] [place] [address], [facility] [phone] from Last 3 Months or Most Recently Relevant to Health Maintenance Insurance [facility] [employer] [place] [employer] [place] [employer] Advance Directives For more information, please contact: [phone] * Full Code (Latest Code Status on File) Date Activated Date Inactivated Comments 09/15/2024 12:49 PM 09/17/2024 3:54 PM All basic a nd advanced life-sustaining interventions are performed as appropriate Question Answer Comments Code status determined by: Discussion with eugene nt/ legal decision maker Care Teams Pipelines Supervisor Relationship Specialty Start Date End Date No Ref-Primary, Physician PCP - General 09/15/24 Trish Woodard PA-C Physician Senior Risk Analyst Physician Senior Risk Analyst 02/03/13 Emerson Dowd MD [address] [place] [id number] Assigned PCP 09/20/21
== END 2024-09-15 04:15 | disposition home or self-care (01) ==
LOC: AMB 09-18 12:54
PROVIDERS: Visit Provider Family Medicine
DX: T14.90XA Injury, unspecified, initial encounter (principal); I10 Essential (primary) hypertension; V47.0XXA Car driver injured in collision with fixed or stationary object in nontraffic accident, initial encounter; Y92.411 Interstate highway as the place of occurrence of the external cause
CPT/HCPCS: A0425; A0429